=== PATIENT | female | born 1950 | race Caucasian/White ===

== ENCOUNTER → 2016-08-21 | Outpatient (CLI) | payer MEDICARE, OTHER ==
--- NOTE | 2016-08-23 08:26 | XR ---
Right elbow HISTORY: Pain, bursitis 3 views of the right elbow Bone mineralization, joint spaces and alignment are maintained. No fracture or dislocation. Soft tiss ue swelling noted posteriorly. There may be a joint effusion. IMPRESSION: Findings may be indicative of bursitis, possible joint effusion.
== END ==
LOC: RADXRYALE 14:50
PROVIDERS: ATTEND Internal Medicine
DX: M70.21 Olecranon bursitis, right elbow (principal)

== ENCOUNTER → 2018-12-31 | Outpatient (CLI) | payer MEDICARE, OTHER ==
--- NOTE | 2018-12-31 21:15 | XR ---
EXAMINATION TYPE: XR ribs LT w pa chest xray DATE OF EXAM: 12/31/2018 CLINICAL HISTORY: Chest and left-sided rib pain after falling injury 4 days ago. TECHNIQUE: Single frontal view of the chest is obtained. A frontal and oblique images of the left-azucena ed ribs are acquired. COMPARISON: Chest x-ray August 16, 2013. FINDINGS: There are some chronic parenchymal change with right midlung linear scarring redemonstrated . There is no new suspicious focal air space opacity, pleural effusion, or pneumothorax seen. The ca rdiac silhouette size is stable and within normal limits. Surgical changes lumbar spine is present. T here is stimulator device mid to lower thoracic spinal canal noted. Cholecystectomy clips are appreci ated. Dedicated images of left-sided ribs show no acute displaced fracture. Overlying soft tissue is unrema rkable. IMPRESSION: 1. Chronic changes without acute pulmonary process. Tube. No acute displaced left-sided rib fractures are seen
== END ==
LOC: RADXRYALE 16:00
PROVIDERS: ATTEND Internal Medicine
DX: R07.81 Pleurodynia (principal)

== ENCOUNTER → 2019-01-22 | Outpatient (CLI) | payer MEDICARE, OTHER ==
--- NOTE | 2019-01-25 11:42 | MM ---
Reason for exam: screening (asymptomatic). Last mammogram was performed 1 year and 3 months ago. History: Patient is postmenopausal and has history of other cancer at age 65. Family history of breast cancer in mother at age 30. Physical Findings: A clinical breast exam by your physician is recommended on an annual basis and results should be correlated with mammographic findings. MG 3D Screening Mammo W/Cad Bilateral CC and MLO view(s) were taken. Prior study comparison: October 08, 2017, mammogram, performed at [facility]. September 12, 2015, mammogram, performed at [facility]. There are scattered fibroglandular densities. Stable benign calcifications. There is no discrete abnormality. No significant changes when compared with prior studies. ASSESSMENT: Benign, BI-RAD 2 RECOMMENDATION: Routine screening mammogram of both breasts in 1 year.
== END | disposition home or self-care (01) ==
LOC: RADMAMWWP 15:05
PROVIDERS: ATTEND Internal Medicine
DX: Z12.31 Encounter for screening mammogram for malignant neoplasm of breast (principal)
CPT/HCPCS: 77063; 77067

== ENCOUNTER → 2019-08-06 | Outpatient (CLI) | payer MEDICARE, OTHER ==
--- NOTE | 2019-08-06 15:40 | XR ---
EXAMINATION TYPE: XR foot complete LT DATE OF EXAM: 08/06/2019 COMPARISON: None HISTORY: Bilateral foot pain TECHNIQUE: Three-view left foot FINDINGS: Plantar calcaneal heel spurs are present. Joint spaces are preserved. No acute displaced fracture or dislocation. The may be an old fracture of the mid diaphysis proximal phalanx fifth digit. There is a very subtle lucency within the base of the fifth metatarsal. Cortex disruption is not rosalee rly identified. This is nondisplaced. Very subtle nondisplaced fracture is not entirely excluded. Cor relate with location of patient's pain. Follow-up exam in 7-10 days could be performed to reevaluate this area for possible fracture. IMPRESSION: 1. Very subtle or nearly occult fracture of the base of the fifth metatarsal may be present. Conside r follow-up examination for confirmation. Artifact remains within the differential. 2. No additional areas suspicious for fracture are evident.
== END | disposition home or self-care (01) ==
LOC: RADXRYALE 15:13
PROVIDERS: ATTEND Internal Medicine
DX: S93.602A Unspecified sprain of left foot, initial encounter (principal)

== ENCOUNTER 2020-07-25 11:57 | Emergency (ER) | payer MEDICARE, OTHER ==
[2020-07-25 12:16] VITALS: BP 192/83; PULSE 82; RESP 20; TEMP 98
[2020-07-25] MEDS ORDERED: KETOROLAC 15 MG/ML 1 ML VIAL IM STA (12:43)
--- NOTE | 2020-07-25 13:36 | ED ---
General Adult HPI - General Chief complaint: Extremity Problem,Nontraumatic Stated complaint: left side pain Time Seen by Provider: 07/25/20 12:20 Source: patient, RN notes reviewed Mode of arrival: ambulatory Limitations: no limitations - History of Present Illness Initial comments: 69-year-old female with a past medical history of hyperlipidemia, hypertension, diabetes mellitus presents to the emergency room for chief complaint of left leg pain. Patient has had left leg pain for over a month now. States it is on the anterior thigh. Patient states it hurts to move. States she has been able to walk on this. She reports she had a sabrina placed in the left leg 4 years ago broken hip. She states it was a Dr. Bishop out of [facility] that performed the surgery however she has not followed up. Patient reports she has an appointment with her primary care doctor tomorrow for this pain.Patient has no other complaints at this time including shortness of breath, chest pain, abdominal pain, nausea or vomiting, headache, or visual changes. - Related Data Allergies Allergy/AdvReac Type Severity Reaction Status Date / Time acetaminophen Allergy Vomiting Verified 07/25/20 12:16 [From Darvocet-N] codeine Allergy Vomiting Verified 07/25/20 12:16 Penicillins Allergy Vomiting Verified 07/25/20 12:16 propoxyphene Allergy Vomiting Verified 07/25/20 12:16 [From Darvocet-N] Review of Systems ROS Statement: Those systems with pertinent positive or pertinent negative responses have been documented in the HPI. ROS Other: All systems not noted in ROS Statement are negative. Past Medical History Past Medical History: Diabetes Mellitus, Hyperlipidemia, Hypertension History of Any Multi-Drug Resistant Organisms: None Reported Past Surgical History: Back Surgery, Orthopedic Surgery Past Psychological History: No Psychological Hx Reported Smoking Status: Former smoker Past Alcohol Use History: None Reported Past Drug Use History: None Reported General Exam Limitations: no limitations General appearance: alert, in no apparent distress Head exam: Present: atraumatic, normocephalic, normal inspection Eye exam: Present: normal appearance, PERRL, EOMI. Absent: scleral icterus, conjunctival injection, periorbital swelling ENT exam: Present: normal exam, mucous membranes moist Neck exam: Present: normal inspection. Absent: tenderness, meningismus, lymphadenopathy Respiratory exam: Present: normal lung sounds bilaterally. Absent: respiratory distress, wheezes, rales, rhonchi, stridor Cardiovascular Exam: Present: regular rate, normal rhythm, normal heart sounds. Absent: systolic murmur, diastolic murmur, rubs, gallop, clicks Extremities exam: Present: tenderness (Minimal tenderness anterior mid thigh. No inner thigh tenderness. No erythema or edema.), normal capillary refill (Capillary refill less than 2 seconds the left lower extremity.), other (Sensation intact left lower extremity.). Absent: full ROM (Patient has about 90 flexion of the knee and hip, extension to neutral position.), calf tenderness Course Vital Signs 07/25/20 12:13 Temperature 98 F Pulse Rate 82 Respiratory 20 Rate Blood Pressure 192/83 O2 Sat by Pulse 96 Oximetry Medical Decision Making - Medical Decision Making 69-year-old female presents for femur pain for one month. Repair with medullary sabrina was completed over 4 years ago she reports. HPI and physical exam as documented. X-ray of the left hip shows no fracture. The posterior aspect of the fracture line may be incompletely healed at this time. [facility], recommends protected weightbearing and outpatient follow-up with them. I will give her referral. She will also follow up with primary care tomorrow. She has an appointment scheduled. She will return here for any worsening symptoms. Disposition Clinical Impression: Leg pain, left Disposition: HOME SELF-CARE Condition: Good Instructions (If sedation given, give patient instructions): Leg Pain (ED) Additional Instructions: Please take Motrin and Tylenol for pain. Please follow-up with primary care tomorrow. Follow-up with orthopedics for possible nonhealing fracture. Return to the emergency room for any worsening symptoms. Is patient prescribed a controlled substance at d/c from ED?: No Referrals: Tabatha Alonso MD [Primary Care Provider] - 1-2 days Tano Palacios MD [STAFF PHYSICIAN] - 1-2 days Time of Disposition: 14:37
--- NOTE | 2020-07-25 14:04 | XR ---
EXAMINATION TYPE: XR Hip LT and AP Pelvis DATE OF EXAM: 07/25/2020 COMPARISON: None HISTORY: Pain TECHNIQUE: AP pelvis and two-view left hip FINDINGS: Left hip pain and medullary sabrina are present. Femoral head articulates with the acetabulum. No acute fractures are evident. There may be some incomplete healing of the posterior aspect of the l eft femoral fracture on the frog leg view. The more anterior portion appears healed. Sacroiliac joint s have degenerative change. Symphysis pubis are normal. IMPRESSION: 1. No acute fractures of the left hip. The posterior aspect of the fracture line may be incompletely healed at this time.
--- NOTE | 2020-07-25 14:06 | XR ---
EXAMINATION TYPE: XR femur LT DATE OF EXAM: 07/25/2020 COMPARISON: 2 view left femur HISTORY: Fracture, repair TECHNIQUE: 2 view left femur FINDINGS: Degenerative changes are at the knee joint space. There is a left hip pin with medullary ro d. An acute fractures are identified. Some incomplete healing of the posterior aspect of the femoral fracture may be present on the lateral view. Note is made of vascular calcification. IMPRESSION: 1. There may be incomplete healing of the posterior proximal left femoral fracture line. No acute fr actures are evident.
== END 2020-07-25 14:55 | disposition home or self-care (01) ==
LOC: EC 11:57
DX: M79.605 Pain in left leg (principal); E11.9 Type 2 diabetes mellitus without complications; E78.5 Hyperlipidemia, unspecified; I10 Essential (primary) hypertension; Z87.891 Personal history of nicotine dependence
CPT/HCPCS: 73502; 73552; 99283; 96372; J1885

== ENCOUNTER → 2020-08-11 | Outpatient (CLI) | payer MEDICARE, OTHER ==
--- NOTE | 2020-08-11 07:53 | CT ---
EXAMINATION TYPE: CT hip LT wo con DATE OF EXAM: 08/11/2020 COMPARISON: None HISTORY: left hip pain, reduced range of motion CT DLP: 763.7 mGycm Automated exposure control for dose reduction was used. Unenhanced CT of the left hip was performed w ith bone and soft tissue window settings submitted. Axial coronal and sagittal views are reviewed at the workstation. 3-D reconstruction is obtained at a separate workstation. FINDINGS: There is dynamic compression screw and intramedullary jah about the proximal left femur. Hardware chidi ears to be well seated. The mid and lateral portions of the fracture line continue to be visible comp atible with partial nonunion. No additional fractures are seen. Mild degenerative joint space narrowi ng. No soft tissue collections evident. IMPRESSION: POSTSURGICAL CHANGES OF INTRAMEDULLARY JAH AND DYNAMIC COMPRESSION SCREW AND PROXIMAL LEFT FEMUR. 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
== END ==
LOC: RADCTMAIN 07:04
PROVIDERS: ATTEND Orthopaedic Surgery
DX: M25.552 Pain in left hip (principal); E11.9 Type 2 diabetes mellitus without complications; E78.5 Hyperlipidemia, unspecified; S72.22XK Displaced subtrochanteric fracture of left femur, subsequent encounter for closed fracture with nonunion; X58.XXXA Exposure to other specified factors, initial encounter

== ENCOUNTER 2020-10-07 22:28 | Inpatient (IN) | payer MEDICARE, OTHER ==
[2020-10-07] MEDS ORDERED: SODIUM CHLORIDE 0.9% 1,000 ML IV STA (22:53)
[2020-10-07] MEDS ORDERED: ONDANSETRON 4 MG/2 ML VIAL IVP STA (22:53)
[2020-10-07] MEDS ORDERED: PANTOPRAZOLE 40 MG/10 ML VIAL IVP STA (22:54)
[2020-10-07 23:34] LABS: Anisocytosis Slight; Basophils # (A) 0.1 k/uL (0-0.2); Basophils % (A) 1 %; Eosinophils # (A) 0.1 k/uL (0-0.7); Eosinophils % (A) 2 %; HGB 13.1 gm/dL (11.4-16.0); Lymphocytes # (A) 1.3 k/uL (1.0-4.8); Lymphocytes % (A) 18 %; MCH 26.3 pg (25.0-35.0); MCHC 31.3 g/dL (31.0-37.0); MCV 84.1 fL (80.0-100.0); Mean Platelet Volume 9.2; Monocytes # (A) 0.5 k/uL (0-1.0); Monocytes % (A) 8 %; Neutrophils % (A) 70 %; Platelet Count 244 k/uL (150-450); RBC 4.99 m/uL (3.80-5.40); RDW 16.5 % (11.5-15.5); WBC 7.1 k/uL (3.8-10.6)
--- NOTE | 2020-10-07 23:42 | ED ---
Nausea/Vomiting/Diarrhea HPI - General Chief complaint: Nausea/Vomiting/Diarrhea Stated complaint: Diarrhea Time Seen by Provider: 10/07/20 22:37 Source: patient Mode of arrival: wheelchair - History of Present Illness Initial comments: 70-year-old female presents to the emergency department with a chief complaint of diarrhea. Patient has history of colitis and states she gets occasional bouts of diarrhea but this time has been persistent for the past week. States everything is going through her even though she is drinking plenty of fluids and eating quite a bit of fluid. She reports profuse watery diarrhea with no signs of bleeding. States last time she had symptoms similar she was diagnosed with C. diff. States she sent a sample to 's office but has not heard any results. Denies any recent antibiotics but states she was recently on steroids for the colitis flare. Denies any fevers or chills chest pain shortness of breath. Reports some mild, diffuse abdominal pain. Denies any nausea or vomiting. - Related Data Home Medications Medication Instructions Recorded Confirmed Albuterol Sulfate [Ventolin HFA] 2 puff INHALATION RT-QID PRN 07/25/20 07/25/20 Allopurinol [Zyloprim] 100 mg PO DAILY 07/25/20 07/25/20 Cholecalciferol [Vitamin D3 (25 25 mcg PO DAILY 07/25/20 07/25/20 Mcg = 1000 Iu)] Cholestyramine (with Sugar) 4 gm PO DAILY 07/25/20 07/25/20 [Cholestyramine Packet] Diphenox-Atrop 2.5-0.025 mg 2 tab PO BID 07/25/20 07/25/20 [Lomotil] Escitalopram [Lexapro] 20 mg PO DAILY 07/25/20 07/25/20 Fluticasone/Salmeterol [Advair 1 puff INHALATION RT-BID 07/25/20 07/25/20 250-50 Diskus] Gabapentin 600 mg PO BID 07/25/20 07/25/20 Linagliptin [Tradjenta] 5 mg PO DAILY 07/25/20 07/25/20 Losartan Potassium 50 mg PO DAILY 07/25/20 07/25/20 Omeprazole 20 mg PO DAILY 07/25/20 07/25/20 Pravastatin Sodium [Pravachol] 40 mg PO DAILY 07/25/20 07/25/20 guaiFENesin [Mucinex] 1,200 mg PO BID PRN 07/25/20 07/25/20 Allergies Allergy/AdvReac Type Severity Reaction Status Date / Time bee venom protein (honey bee) Allergy Anaphylaxis Verified 10/07/20 22:36 bupropion AdvReac Unknown Verified 10/07/20 22:36 [From Wellbutrin SR] codeine AdvReac Vomiting Verified 10/07/20 22:34 furosemide [From Lasix] AdvReac Unknown Verified 10/07/20 22:36 ibuprofen [From Motrin] AdvReac Unknown Verified 10/07/20 22:36 loracarbef [From Lorabid] AdvReac Unknown Verified 10/07/20 22:36 morphine AdvReac Nausea & Verified 10/07/20 22:36 Vomiting Penicillins AdvReac Vomiting Verified 10/07/20 22:34 propoxyphene AdvReac Vomiting Verified 10/07/20 22:34 [From Darvocet-N] biqxin AdvReac Abdominal Uncoded 10/07/20 22:36 Pain lodine AdvReac Unknown Uncoded 10/07/20 22:36 toziaz AdvReac Unknown Uncoded 10/07/20 22:36 Review of Systems ROS Statement: Those systems with pertinent positive or pertinent negative responses have been documented in the HPI. ROS Other: All systems not noted in ROS Statement are negative. Past Medical History Past Medical History: Diabetes Mellitus, Hyperlipidemia, Hypertension Additional Past Medical History / Comment(s): colitis History of Any Multi-Drug Resistant Organisms: None Reported Past Surgical History: Back Surgery, Orthopedic Surgery Additional Past Surgical History / Comment(s): having surgery left femur september 2020 Past Psychological History: No Psychological Hx Reported Smoking Status: Former smoker Past Alcohol Use History: None Reported Past Drug Use History: None Reported General Exam Limitations: no limitations General appearance: alert, in no apparent distress Head exam: Present: atraumatic, normocephalic, normal inspection Eye exam: Present: normal appearance, PERRL, EOMI Pupils: Present: normal accommodation ENT exam: Present: normal exam, normal oropharynx, mucous membranes moist Neck exam: Present: normal inspection, full ROM. Absent: tenderness Respiratory exam: Present: normal lung sounds bilaterally. Absent: respiratory distress Cardiovascular Exam: Present: regular rate, normal rhythm, normal heart sounds. Absent: systolic murmur, diastolic murmur GI/Abdominal exam: Present: soft, tenderness (Mild, diffuse abdominal tenderness). Absent: distended, guarding, rebound, rigid Extremities exam: Present: normal inspection, full ROM, normal capillary refill. Absent: tenderness, pedal edema, joint swelling Back exam: Present: normal inspection, full ROM. Absent: tenderness, CVA tenderness (R), CVA tenderness (L) Neurological exam: Present: alert, oriented X3 Psychiatric exam: Present: normal affect, normal mood Skin exam: Present: warm, dry, intact, normal color Course Vital Signs 10/07/20 22:31 Temperature 98.5 F Pulse Rate 58 L Respiratory 18 Rate Blood Pressure 149/73 O2 Sat by Pulse 98 Oximetry Medical Decision Making - Medical Decision Making 70-year-old female presents to the emergency department with a chief complaint of diarrhea. On physical examination, patient appears to be weak. Mild dry mucous membranes. Diffuse abdominal tenderness, mostly to the left lower quadrant. CT of abdomen and pelvis shows no acute inflammatory changes. CBC CMP remarkable. Mild hypokalemia with a potassium of 3.2. Patient was given oral potassium. UA shows urinary tract infection with elevated leukocyte esterase and white blood cells. Will be started on Rocephin. Patient will be admitted for observation. I discussed the case with . Consult for Dr Duque, she is the patient GI physician. - Lab Data Result diagrams: 10/07/20 22:53 10/07/20 22:53 Lab Results 10/07/20 10/07/20 10/07/20 Range/Units 22:53 22:53 22:53 WBC 7.1 (3.8-10.6) k/uL RBC 4.99 (3.80-5.40) m/uL Hgb 13.1 (11.4-16.0) gm/dL Hct 42.0 (34.0-46.0) % MCV 84.1 (80.0-100.0) fL MCH 26.3 (25.0-35.0) pg MCHC 31.3 (31.0-37.0) g/dL RDW 16.5 H (11.5-15.5) % Plt Count 244 (150-450) k/uL MPV 9.2 Neutrophils % 70 % Lymphocytes % 18 % Monocytes % 8 % Eosinophils % 2 % Basophils % 1 % Neutrophils # 5.0 (1.3-7.7) k/uL Lymphocytes # 1.3 (1.0-4.8) k/uL Monocytes # 0.5 (0-1.0) k/uL Eosinophils # 0.1 (0-0.7) k/uL Basophils # 0.1 (0-0.2) k/uL Anisocytosis Slight Sodium 141 (137-145) mmol/L Potassium 3.2 L (3.5-5.1) mmol/L Chloride 104 (98-107) mmol/L Carbon Dioxide 27 (22-30) mmol/L Anion Gap 10 mmol/L BUN 30 H (7-17) mg/dL Creatinine 0.88 (0.52-1.04) mg/dL Est GFR (CKD-EPI)AfAm 78 (>60 ml/min/1.73 sqM) Est GFR (CKD-EPI)NonAf 68 (>60 ml/min/1.73 sqM) Glucose 114 H (74-99) mg/dL Calcium 8.8 (8.4-10.2) mg/dL Total Bilirubin 0.3 (0.2-1.3) mg/dL AST 25 (14-36) U/L ALT 16 (4-34) U/L Alkaline Phosphatase 60 (38-126) U/L Total Protein 6.9 (6.3-8.2) g/dL Albumin 3.8 (3.5-5.0) g/dL Amylase 50 (30-110) U/L Lipase 45 (23-300) U/L Urine Color Yellow Urine Appearance Cloudy H (Clear) Urine pH 6.0 (5.0-8.0) Ur Specific Brooten 1.018 (1.001-1.035) Urine Protein Trace H (Negative) Urine Glucose (UA) Negative (Negative) Urine Ketones Negative (Negative) Urine Blood Negative (Negative) Urine Nitrite Negative (Negative) Urine Bilirubin Negative (Negative) Urine Urobilinogen <2.0 (<2.0) mg/dL Ur Leukocyte Esterase Large H (Negative) Urine RBC 1 (0-5) /hpf Urine WBC 152 H (0-5) /hpf Urine WBC Clumps Occasional H (None) /hpf Urine Bacteria Occasional H (None) /hpf Urine Mucus Few H (None) /hpf C. difficile (EIA) Intrp (Negative) 10/08/20 Range/Units 00:11 WBC (3.8-10.6) k/uL RBC (3.80-5.40) m/uL Hgb (11.4-16.0) gm/dL Hct (34.0-46.0) % MCV (80.0-100.0) fL MCH (25.0-35.0) pg MCHC (31.0-37.0) g/dL RDW (11.5-15.5) % Plt Count (150-450) k/uL MPV Neutrophils % % Lymphocytes % % Monocytes % % Eosinophils % % Basophils % % Neutrophils # (1.3-7.7) k/uL Lymphocytes # (1.0-4.8) k/uL Monocytes # (0-1.0) k/uL Eosinophils # (0-0.7) k/uL Basophils # (0-0.2) k/uL Anisocytosis Sodium (137-145) mmol/L Potassium (3.5-5.1) mmol/L Chloride (98-107) mmol/L Carbon Dioxide (22-30) mmol/L Anion Gap mmol/L BUN (7-17) mg/dL Creatinine (0.52-1.04) mg/dL Est GFR (CKD-EPI)AfAm (>60 ml/min/1.73 sqM) Est GFR (CKD-EPI)NonAf (>60 ml/min/1.73 sqM) Glucose (74-99) mg/dL Calcium (8.4-10.2) mg/dL Total Bilirubin (0.2-1.3) mg/dL AST (14-36) U/L ALT (4-34) U/L Alkaline Phosphatase (38-126) U/L Total Protein (6.3-8.2) g/dL Albumin (3.5-5.0) g/dL Amylase (30-110) U/L Lipase (23-300) U/L Urine Color Urine Appearance (Clear) Urine pH (5.0-8.0) Ur Specific Brooten (1.001-1.035) Urine Protein (Negative) Urine Glucose (UA) (Negative) Urine Ketones (Negative) Urine Blood (Negative) Urine Nitrite (Negative) Urine Bilirubin (Negative) Urine Urobilinogen (<2.0) mg/dL Ur Leukocyte Esterase (Negative) Urine RBC (0-5) /hpf Urine WBC (0-5) /hpf Urine WBC Clumps (None) /hpf Urine Bacteria (None) /hpf Urine Mucus (None) /hpf C. difficile (EIA) Intrp Negative (Negative) Disposition Clinical Impression: Diarrhea, Hypokalemia, Urinary tract infection Disposition: ADMITTED IP TO THIS HOSP Condition: Stable Is patient prescribed a controlled substance at d/c from ED?: No Referrals: Tabatha Alonso MD [Primary Care Provider] - 1-2 days Time of Disposition: 02:13
[2020-10-07 23:47] LABS: Albumin 3.8 g/dL (3.5-5.0); Calcium 8.8 mg/dL (8.4-10.2); Potassium 3.2 mmol/L (3.5-5.1); Total Bilirubin 0.3 mg/dL (0.2-1.3); Total Protein 6.9 g/dL (6.3-8.2)
[2020-10-07] MEDS ORDERED: POTASSIUM CHLORIDE ER 20 MEQ TAB.ER PO STA (23:54)
[2020-10-08] MEDS ORDERED: methylPREDNISolone SOD SUCCI 125 MG/2 ML VIAL IV STA (00:10)
[2020-10-08] MEDS ORDERED: diphenhydrAMINE 50 MG/ML 1 ML VIAL IVP STA (00:10)
[2020-10-08] MEDS ORDERED: FAMOTIDINE 20 MG/2 ML VIAL IV STA (00:11)
[2020-10-08 00:35] LABS: Appearance,Urine Cloudy (Clear); Bacteria,Urine Occasional /hpf; Bilirubin,Urine Negative (Negative); Blood,Urine Negative (Negative); Color,Urine Yellow; Glucose,Urine (UA) Negative (Negative); Ketones,Urine Negative (Negative); Leukocyte Esterase,Urine Large (Negative); Mucus,Urine Few /hpf; Nitrite,Urine Negative (Negative); Protein,Urine Trace (Negative); RBC,Urine 1 /hpf (0-5); Specific Gravity,Urine 1.018 (1.001-1.035); Urobilinogen,Urine <2.0 mg/dL (<2.0); WBC,Urine 152 /hpf (0-5)
--- NOTE | 2020-10-08 01:12 | CT ---
EXAMINATION TYPE: CT abdomen pelvis w con DATE OF EXAM: 10/08/2020 COMPARISON: None HISTORY: llq pain CT DLP: 1294.3 mGycm Automated exposure control for dose reduction was used. CONTRAST: Performed with IV Contrast, patient injected with 100 mL of Isovue 300. Images obtained from the diaphragm to the floor the pelvis with IV contrast. Lung bases show minimal subsegmental atelectasis on the right side. Heart size is fairly normal. Ther e is no pericardial effusion. There is small hiatal hernia. There are clips from cholecystectomy. Liver spleen stomach pancreas appear intact. The bile ducts are not dilated. There is no adrenal mass. Kidneys show satisfactory contrast opacification. There is no hydronephrosi s. The ureters are not dilated. There is no retroperitoneal adenopathy. Bladder distends smoothly. Th ere is no inguinal hernia. There is no free fluid in the pelvis. There is no mesenteric edema. There is no ascites or free air. There is no sign of a bowel obstructio n. Urinary bladder wall is somewhat thickened. There is thoracolumbar dextroscoliosis and multilevel fusion surgery in the lumbar spine. There is mu ltilevel lumbar spondylotic changes. There is left hip nailing. Bony pelvis is intact. The sacroiliac joints are intact. There is no sign of thickened appendix. IMPRESSION: I do not see evidence of inflammatory bowel disease. There are some sigmoid diverticula without diver ticulitis. Mild urinary bladder wall thickening suggestive of some nonspecific cystitis.
[2020-10-08] MEDS ORDERED: ONDANSETRON 4 MG/2 ML VIAL IVP PRN (02:08)
[2020-10-08] MEDS ORDERED: NALOXONE 0.4 MG/ML 1 ML VIAL IV PRN (02:08)
[2020-10-08] MEDS ORDERED: SODIUM CHLORIDE 0.9% 1,000 ML IV SCH (02:15)
--- NOTE | 2020-10-08 08:45 | CONS ---
CONSULTATION DATE OF DICTATION: October 08, 2020. REASON FOR CONSULTATION: Diarrhea for the last several weeks' duration. HISTORY OF PRESENT ILLNESS: The patient is a 70-year-old pleasant white male known to me from previous office visits, who was recently seen in the office about 3 weeks ago complaining of severe diarrhea for the last 3-4 weeks. She has been having bowel movements anywhere from 6-8 a day which are loose to watery in consistency with no blood or mucus in the stool. She was diagnosed with C difficile colitis in March of this year and was treated with antibiotics and doing well. Recently in the office, she did have repeat C difficile toxin was reported as negative. 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 She was given a trial of Entocort 9 mg daily about 3 weeks ago and was advised to taper it by 3 mg every month. However, after she started the medications she had symptomatic relief in the first 2 weeks, but now continues to have worsening diarrhea and hence came into the emergency room and subsequently admitted to the hospital for further evaluation. The patient denies any rectal bleeding. She reports she does have some abdominal bloating and cramping, lower abdominal pain. No nausea, no vomiting. Weight loss of about 10 or 15 pounds. She denies any recent travel history. No recent antibiotic use. She was also started on Lomotil and Questran on an outpatient basis with no help. PAST MEDICAL HISTORY: Significant for hypertension, diabetes mellitus, hyperlipidemia. PAST SURGICAL HISTORY: Back surgery, left femur surgery, colonoscopy 2014. MEDICATIONS: Medications at home include Lomotil, Questran, Ventolin, Zyloprim, vitamin D3, Lexapro, Advair, gabapentin, Tradjenta, Mucinex, Pravachol, omeprazole, losartan, and Entocort. ALLERGIES: TO HONEY BEE, CODEINE, LASIX, MOTRIN, LORBID, MORPHINE, PENICILLIN, DARVOCET, BIAXIN, IODINE AND . SOCIAL HISTORY: No smoking. No alcohol use. FAMILY HISTORY: Unremarkable. REVIEW OF SYSTEMS: CARDIOPULMONARY: She denies any chest pain or shortness of breath. : No dysuria. No hematuria. MUSCULOSKELETAL: Unremarkable. SKIN unremarkable. ENDOCRINE unremarkable. PSYCHIATRIC: Mild depression. ENT/VISION: Unremarkable. CONSTITUTIONAL: Weight loss of 10 pounds. No fever, chills, night sweats. ENDOCRINE: Longstanding history of diabetes mellitus. PHYSICAL EXAMINATION: She appears comfortable. VITAL SIGNS: Stable. Blood pressure is 174/64, pulse rate 65, temperature 97.8. HEENT examination unremarkable. Conjunctivae pink. Sclerae anicteric. Oral cavity no lesions. NECK: No JVD or lymph node enlargement. CHEST was clear to auscultation. HEART: Regular rate and rhythm. ABDOMEN: Soft. Bowel sounds are positive. No organomegaly. EXTREMITIES: No pedal edema. SKIN: No rashes. NEUROLOGIC: Alert and oriented x3. No focal deficits. LABS: WBC 7.1, hemoglobin 13, platelets normal. Basic metabolic panel is within normal limits. BUN is 30, creatinine 0.88. C diff is negative. IMPRESSION: 1. Chronic diarrhea for the last 3-4 weeks duration. Patient having bowel movements anywhere from 6-8 a day which are loose to watery in consistency with no blood or mucus in the stool. Her last colonoscopy in [address] Scales showed evidence of microscopic colitis and patient is being treated empirically with Entocort 9 mg daily on an outpatient basis that was started about 3 weeks ago. Patient has no symptomatic improvement and hence stopped the medication. She was also on Lomotil and Questran with no help. 2. History of C difficile colitis in March of this year. Repeat C difficile toxin negative 3 weeks ago and today. 3. History of diabetes mellitus. 4. History of hypertension and hyperlipidemia. RECOMMENDATIONS: 1. Start on clear liquid diet. 2. We will proceed with EGD colonoscopy tomorrow. I discussed with the patient benefits and complications and she is agreeable to it. In the meantime, we will await rest of the stool cultures and we will follow with you closely. MMODL / IJN: [id number] /
[2020-10-08] MEDS ORDERED: POTASSIUM CHLORIDE ER 20 MEQ TAB.ER PO STA (11:00)
[2020-10-08] MEDS ORDERED: ALBUTEROL NEBULIZED 2.5 MG/3 ML INHALATION PRN (11:01)
[2020-10-08] MEDS: GABAPENTIN 300 MG CAP PO SCH ×2 (11:27→20:38)
[2020-10-08] MEDS: LOSARTAN 50 MG TAB PO SCH (11:28)
[2020-10-08] MEDS: ESCITALOPRAM 20 MG TAB PO SCH (11:28)
--- NOTE | 2020-10-08 11:44 | P.HPIM ---
History of Present Illness 70-year-old female came in with compensative diarrhea patient has chronic diarrhea for about a month. Patient usually has a 3-4 episodes of diarrhea lately for LAD last for 5 days patient was having a bout of 5 nonbloody diarrhea without any mucus. Patient was on steroids in the for microscopic colitis. C. diff was done which was negative. Patient is on antidiarrheal medications. Patient denied any fever chills patient and dysuria. Patient was a valid by gastroenterology patient will undergo colonoscopy tomorrow patient denied any significant abdominal pain apparently she had some abdominal pain is resolved at this time. Patient is hyponatremic secondary to diarrhea potassium will be replaced patient received 40 mg her potassium yesterday was 3.2 we will give her 60 more. Patient is expected to have low potassium as she continued to have diarrhea and she is receiving IV fluids and patient will receive GoLYTELY today for colonoscopy. REVIEW OF SYSTEMS: CONSTITUTIONAL: No fever, no malaise, no fatigue. HEENT: No recent visual problems or hearing problems. Denied any sore throat. CARDIOVASCULAR: No chest pain, orthopnea, PND, no palpitations, no syncope. PULMONARY: No shortness of breath, no cough, no hemoptysis. GASTROINTESTINAL: As mentioned in HPI. NEUROLOGICAL: No headaches, no weakness, no numbness. HEMATOLOGICAL: Denies any bleeding or petechiae. GENITOURINARY: Denies any burning micturition, frequency, or urgency. MUSCULOSKELETAL/RHEUMATOLOGICAL: Denies any joint pain, swelling, or any muscle pain. ENDOCRINE: Denies any polyuria or polydipsia. The rest of the 14-point review of systems is negative. PHYSICAL EXAMINATION: GENERAL: The patient is alert and oriented x3, not in any acute distress. Well developed, well nourished. HEENT: Pupils are round and equally reacting to light. EOMI. No scleral icterus. No conjunctival pallor. Normocephalic, atraumatic. No pharyngeal erythema. No thyromegaly. CARDIOVASCULAR: S1 and S2 present. No murmurs, rubs, or gallops. PULMONARY: Chest is clear to auscultation, no wheezing or crackles. ABDOMEN: Soft, nontender, nondistended, normoactive bowel sounds. No palpable organomegaly. MUSCULOSKELETAL: No joint swelling or deformity. EXTREMITIES: No cyanosis, clubbing, or pedal edema. NEUROLOGICAL: Gross neurological examination did not reveal any focal deficits. SKIN: No rashes. 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 -Depression DVT prophylaxis: Lovenox Past Medical History Past Medical History: Diabetes Mellitus, Hyperlipidemia, Hypertension Additional Past Medical History / Comment(s): colitis History of Any Multi-Drug Resistant Organisms: None Reported Past Surgical History: Back Surgery, Orthopedic Surgery Additional Past Surgical History / Comment(s): having surgery left femur september 2020 Additional Past Anesthesia/Blood Transfusion Reaction / Comment(s): States allergic to the sun from transfusion Past Psychological History: No Psychological Hx Reported Additional Psychological History / Comment(s): Sister at bedside states 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 Smoking Status: Former smoker Past Alcohol Use History: None Reported Past Drug Use History: None Reported - Past Family History Father Additional Family Medical History / Comment(s): Stroke Medications and Allergies Home Medications Medication Instructions Recorded Confirmed Type Albuterol Sulfate [Ventolin HFA] 2 puff INHALATION RT-QID PRN 07/25/20 10/08/20 History Allopurinol [Zyloprim] 100 mg PO DAILY 07/25/20 10/08/20 History Cholecalciferol [Vitamin D3 (25 25 mcg PO DAILY 07/25/20 10/08/20 History Mcg = 1000 Iu)] Diphenox-Atrop 2.5-0.025 mg 2 tab PO TID PRN 07/25/20 10/08/20 History [Lomotil] Escitalopram [Lexapro] 20 mg PO DAILY 07/25/20 10/08/20 History Fluticasone/Salmeterol [Advair 1 puff INHALATION RT-BID 07/25/20 10/08/20 History 250-50 Diskus] Gabapentin 600 mg PO BID 07/25/20 10/08/20 History Losartan Potassium 50 mg PO DAILY 07/25/20 10/08/20 History Omeprazole 20 mg PO DAILY 07/25/20 10/08/20 History Pravastatin Sodium [Pravachol] 40 mg PO DAILY 07/25/20 10/08/20 History guaiFENesin [Mucinex] 1,200 mg PO BID PRN 07/25/20 10/08/20 History Dicyclomine [Bentyl] 10 mg PO QID PRN 10/08/20 10/08/20 History Allergies Allergy/AdvReac Type Severity Reaction Status Date / Time bee venom protein (honey bee) Allergy Anaphylaxis Verified 10/08/20 09:45 bupropion AdvReac Unknown Verified 10/08/20 09:45 [From Wellbutrin SR] codeine AdvReac Vomiting Verified 10/08/20 09:45 furosemide [From Lasix] AdvReac Unknown Verified 10/08/20 09:45 ibuprofen [From Motrin] AdvReac Unknown Verified 10/08/20 09:45 loracarbef [From Lorabid] AdvReac Unknown Verified 10/08/20 09:45 morphine AdvReac Nausea & Verified 10/08/20 09:45 Vomiting Penicillins AdvReac Vomiting Verified 10/08/20 09:45 propoxyphene AdvReac Vomiting Verified 10/08/20 09:45 [From Darvocet-N] biqxin AdvReac Abdominal Uncoded 10/07/20 22:36 Pain lodine AdvReac Unknown Uncoded 10/07/20 22:36 toziaz AdvReac Unknown Uncoded 10/07/20 22:36 Physical Exam Vitals: Vital Signs Temp Pulse Pulse Resp BP BP BP 10/08/20 10:24 58 L 18 158/83 10/08/20 08:00 97.8 F 65 16 174/64 10/08/20 04:02 59 L 10/08/20 01:51 98.5 F 58 L 16 149/74 10/08/20 01:33 71 16 148/84 10/07/20 22:31 98.5 F 58 L 18 149/73 Pulse Ox 10/08/20 10:24 95 10/08/20 08:00 94 L 10/08/20 04:02 10/08/20 01:51 10/08/20 01:33 100 10/07/20 22:31 98 Intake and Output 10/07/20 10/08/20 10/08/20 22:59 06:59 14:59 Output Total 200 Balance -200 Output: Urine 200 Other: Voiding Method Toilet Diaper # Voids 1 1 # Bowel Movements 1 Weight 61.235 kg 75.2 kg Results CBC & Chem 7: 10/07/20 22:53 10/07/20 22:53 Labs: Abnormal Lab Results - Last 24 Hours (Table) 10/07/20 10/07/20 10/07/20 Range/Units 22:53 22:53 22:53 RDW 16.5 H (11.5-15.5) % Potassium 3.2 L (3.5-5.1) mmol/L BUN 30 H (7-17) mg/dL Glucose 114 H (74-99) mg/dL Urine Appearance Cloudy H (Clear) Urine Protein Trace H (Negative) Ur Leukocyte Esterase Large H (Negative) Urine WBC 152 H (0-5) /hpf Urine WBC Clumps Occasional H (None) /hpf Urine Bacteria Occasional H (None) /hpf Urine Mucus Few H (None) /hpf Microbiology - Last 24 Hours (Table) 10/07/20 22:53 Urine Culture - Preliminary Urine,Voided Thrombosis Risk Factor Assmnt - Choose All That Apply Each Factor Represents 1 point: Hx of IBD, Minor surgery planned, Obesity (BMI >25) Each Risk Factor Represents 2 Points: Age 61-74 years Thrombosis Risk Factor Assessment Total Risk Factor Score: 5 Thrombosis Risk Factor Assessment Level: High Risk
[2020-10-08] MEDS: 0.9% NACL WITH KCL 20 MEQ/L 1,000 ML IV SCH ×2 (12:32→21:41)
[2020-10-08 12:41] LABS: Glucose,Whole Blood 139 mg/dL (75-99)
[2020-10-08] MEDS: INSULIN ASPART (NovoLOG) 100 UNIT/ML VIAL SQ SCH ×3 (12:45→20:38)
[2020-10-08] MEDS ORDERED: PEG 3350-NA SULF,BICARB,CL/KCL 4,000 ML BOTTLE PO ONE (17:00)
[2020-10-08 17:20] LABS: Glucose,Whole Blood 120 mg/dL (75-99)
[2020-10-08] MEDS: SYMBICORT 80-4.5 MCG INHALER INHALATION SCH (20:27)
[2020-10-08 20:32] LABS: Glucose,Whole Blood 126 mg/dL (75-99)
[2020-10-09 06:36] LABS: Glucose,Whole Blood 73 mg/dL (75-99)
[2020-10-09] MEDS: INSULIN ASPART (NovoLOG) 100 UNIT/ML VIAL SQ SCH ×4 (06:54→20:01)
[2020-10-09] MEDS: PANTOPRAZOLE 40 MG TABLET PO SCH (06:56)
[2020-10-09 07:11] LABS: African American GFR (CKD) >90 (>60 ml/min/1.73 sqM); Anion Gap 2 mmol/L; Blood Urea Nitrogen 16 mg/dL (7-17); Calcium 8.5 mg/dL (8.4-10.2); Carbon Dioxide 24 mmol/L (22-30); Chloride 117 mmol/L (98-107); Glucose 84 mg/dL (74-99); Non-African American GFR(CKD) >90 (>60 ml/min/1.73 sqM); Potassium 3.6 mmol/L (3.5-5.1); Sodium 143 mmol/L (137-145)
[2020-10-09] MEDS: SYMBICORT 80-4.5 MCG INHALER INHALATION SCH ×2 (07:41→19:07)
[2020-10-09] MEDS ORDERED: D5-0.9% NACL WITH KCL 20 MEQ/L 1,000 ML IV SCH (08:00)
[2020-10-09] MEDS: PRAVASTATIN SODIUM 40 MG TAB PO SCH (09:48)
[2020-10-09] MEDS: LOSARTAN 50 MG TAB PO SCH (09:48)
[2020-10-09] MEDS: ESCITALOPRAM 20 MG TAB PO SCH (09:48)
[2020-10-09] MEDS: GABAPENTIN 300 MG CAP PO SCH ×2 (09:48→20:01)
[2020-10-09] MEDS: CHOLECALCIFEROL 25 MCG (1000 IU) TABLET PO SCH (09:48)
[2020-10-09] MEDS: ENOXAPARIN 40 MG/0.4 ML SYRINGE SQ SCH (09:48)
[2020-10-09] MEDS: allopurinoL 100 MG TAB PO SCH (09:48)
[2020-10-09 12:29] LABS: Glucose,Whole Blood 97 mg/dL (75-99)
[2020-10-09 12:54] LABS: Hemoglobin A1C 5.5 % (4.0-6.0)
[2020-10-09] MEDS ORDERED: PROPOFOL 10 MG/ML 20 ML VIAL IV ONE (14:37)
[2020-10-09] MEDS ORDERED: SODIUM CHLORIDE 0.9% 500 ML 500 ML IV ONE ×2 (14:42)
--- NOTE | 2020-10-09 15:00 | P.PCN ---
Date of Procedure: 10/09/20 Procedure(s) Performed: Brief history: Patient is a pleasant 70-year-old white female admitted hospital with severe diarrhea for the last several weeks duration. She is been having bowel movements anywhere from 6-8 of which are loose to watery in consistency. Stool studies were negative She is scheduled for an upper endoscopy as well as colonoscopy as a part of evaluation of chronic diarrhea. Procedure performed: Esophagogastroduodenoscopy with biopsy Colonoscopy with biopsy Preoperative diagnosis: Abdominal pain/chronic diarrhea and weight loss Anesthesia: MAC Procedure: After informed consent was obtained from the patient was brought into the endoscopy unit and IV sedation was administered by anesthesia under continuous monitoring. Initially upper endoscopy was done. The Olympus GF 160 video endoscope was inserted inserted into the mouth and esophagus intubated without any difficulty and was gradually advanced into the stomach and duodenum and carefully examined. The bulb and second part of the duodenum appeared normal. Biopsies were done from the duodenum to rule out celiac disease The scope was then withdrawn into the stomach adequately insufflated with air and upon careful examination the antrum mild gastritis and biopsies were done from this area. The body, cardia and fundus appeared normal. The scope was then withdrawn into the esophagus. The GE junction was located at 40 cm to the incisors. It appeared regular with no erythema erosions or ulcerations. Rest of the esophagus appeared normal. Patient tolerated the procedure well. At this time the patient continued to remain sedation. Initial digital rectal examination was normal. Olympus CF 160 video colonoscope was then inserted into the rectum and gradually advanced to the cecum without any difficulty. Careful examination was performed as the scope was gradually being withdrawn. The prep was excellent. The cecum, ascending colon, transverse colon, descending colon, sigmoid colon and rectum appeared normal. Random biopsies were done from the ascending/descending colon to rule out microscopic/collagenous colitis Retroflexion was performed in the rectum and no lesions were noted. Patient tolerated the procedure well. Impression: 1. Upper endoscopy revealed mild antral gastritis 2. Colonoscopy revealed scattered sigmoid diverticulosis but no evidence of colitis or colorectal neoplasia Recommendations: Findings of this examination were discussed with the patient as well as her family. She was advised to follow with the biopsy result. In the meantime will start her on Lomotil 2 tablets 4 times daily.
[2020-10-09 17:21] LABS: Glucose,Whole Blood 67 mg/dL (75-99)
[2020-10-09] MEDS: DIPHENOX-ATROP 2.5-0.025 MG 1 EACH TAB PO SCH ×2 (18:07→21:31)
[2020-10-09] MEDS ORDERED: SODIUM CHLORIDE 0.9% 1,000 ML IV SCH (18:30)
[2020-10-09 20:01] LABS: Glucose,Whole Blood 116 mg/dL (75-99)
[2020-10-09] MEDS ORDERED: ACETAMINOPHEN TAB 325 MG TAB PO STA (21:14)
[2020-10-10 06:29] LABS: Glucose,Whole Blood 79 mg/dL (75-99)
[2020-10-10] MEDS: PANTOPRAZOLE 40 MG TABLET PO SCH (06:29)
[2020-10-10] MEDS: INSULIN ASPART (NovoLOG) 100 UNIT/ML VIAL SQ SCH (06:31)
[2020-10-10] MEDS: SYMBICORT 80-4.5 MCG INHALER INHALATION SCH (08:01)
[2020-10-10] MEDS: DIPHENOX-ATROP 2.5-0.025 MG 1 EACH TAB PO SCH (09:04)
[2020-10-10] MEDS: LOSARTAN 50 MG TAB PO SCH (09:04)
[2020-10-10] MEDS: ENOXAPARIN 40 MG/0.4 ML SYRINGE SQ SCH (09:04)
[2020-10-10] MEDS: CHOLECALCIFEROL 25 MCG (1000 IU) TABLET PO SCH (09:04)
[2020-10-10] MEDS: allopurinoL 100 MG TAB PO SCH (09:05)
[2020-10-10] MEDS: GABAPENTIN 300 MG CAP PO SCH (09:05)
[2020-10-10] MEDS: PRAVASTATIN SODIUM 40 MG TAB PO SCH (09:05)
[2020-10-10] MEDS: ESCITALOPRAM 20 MG TAB PO SCH (09:06)
[2020-10-10 09:11] VITALS: RESP 18
[2020-10-10 12:47] LABS: Glucose,Whole Blood 82 mg/dL (75-99)
[2020-10-10 14:23] VITALS: BP 143/63; PULSE 64; TEMP 97.7
--- NOTE | 2020-10-10 16:07 | P.PN ---
Subjective Progress Note Date: 10/10/20 Principal diagnosis: Diarrhea 70-year-old female who was admitted to the hospital with severe diarrhea for the last several weeks duration. She was having bowel movements anywhere from 6-8 which are loose and watery in consistency. Stool studies were negative. Yesterday she underwent an EGD and colonoscopy as part of her evaluation for chronic diarrhea. Upper endoscopy revealed mild antral gastritis and colonoscopy revealed scattered sigmoid diverticulosis but no evidence of colitis or colorectal neoplasia. Patient was started on Lomotil 2 tabs up he takes up to 4 times a day. Today she states she only had one episode of loose bowels, no blood noted. Denies any abdominal pain, nausea, or vomiting. Objective - Vital Signs Vital signs: Vital Signs Temp 98.5 F 10/10/20 00:49 Pulse 58 L 10/10/20 00:49 Resp 16 10/10/20 00:49 BP 158/60 10/10/20 00:49 Pulse Ox 94 L 10/10/20 00:49 Intake & Output 10/09/20 10/10/20 10/10/20 18:59 06:59 18:59 Intake Total 300 300 Balance 300 300 Intake: IV 300 Oral 300 Other: Voiding Method Toilet # Voids 2 1 # Bowel Movements 1 - Exam General appearance: The patient is alert, oriented, appears in no acute distress. HET: Head is normocephalic and atraumatic. Conjunctiva pink. Sclera anicteric. Neck: Supple without lymphadenopathy. Abdomen: Soft, nontender, nondistended with bowel sounds. No guarding or rigidity. Extremities: Normal skin color and turgor. No pedal edema Skin: No rashes, no jaundice Neurological: No focal deficits. Alert and oriented 3. - Labs CBC & Chem 7: 10/07/20 22:53 10/09/20 06:11 Labs: Abnormal Lab Results - Last 24 Hours (Table) 10/09/20 10/09/20 Range/Units 17:20 20:00 POC Glucose (mg/dL) 67 L 116 H (75-99) mg/dL Microbiology - Last 24 Hours (Table) 10/07/20 22:53 Urine Culture - Preliminary Urine,Voided Gram Neg Bacilli Assessment and Plan (1) Diarrhea Narrative/Plan: 70-year-old female with a history of chronic diarrhea for last 3-4 weeks duration. Patient was having bowel movements anywhere from 60 to date which she states were loose and watery in consistency with no blood or mucus in the stool. Has colonoscopy was in [address] Scales which showed evidence of microscopic colitis and patient is being treated empirically with Entocort 9 mg daily as an outpatient basis that was started 3 weeks ago. Patient has no symptomatic improvement and stopped the medication. She was also on Lomotil and Questran with no help. She also has a history of C. difficile colitis in March of this year. Repeat C. difficile toxin -3 weeks ago and today. The patient underwent EGD and colonoscopy yesterday showing mild antral gastritis and scattered sigmoid diverticulosis with no evidence of colitis or neoplasia. Status: Acute Code(s): R19.7 - DIARRHEA, UNSPECIFIED SNOMED Code(s): 47875239 Plan: 1. Continue symptomatic and supportive care 2. Regular diet 3. Continue Lomotil 2 tablets 4 times a day as needed 4. Patient to keep follow-up appointment as scheduled. Thank you for this consultation, patient is cleared for discharge. Dr. Shay Duque I agree with the dictator's note, documented as a scribe by Aurora Aguilera.
--- NOTE | 2020-10-12 13:51 | P.DS ---
Providers Date of admission: 10/10/20 13:11 Expected date of discharge: 10/10/20 Attending physician: Jerry Lima Consults: 10/08/20 02:10 Consult Physician Routine Consulting Provider: Parisa Duque Consult Reason/Comments: Diarrhea, colitis Do you want consulting provider notified?: Yes Primary care physician: Tabatha Alonso Hospital Course: Final diagnosis -Chronic diarrhea: Probably an exacerbation of microscopic colitis -Status post EGD/colonoscopy showing mild antral gastritis and sigmoid diverticulosis with no colitis or colorectal neoplasia noted -Hypokalemia secondary to diarrhea, improved -Hypertension -Type 2 diabetes mellitus -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 Patient will follow-up with Dr. Alonso in the outpatient setting upon discharge. Patient will continue on Ceftin 500 mg twice daily for the next 5 days. Patient was instructed to follow-up outpatient with GI. Total time taken is greater than 35 minutes. Hospital course 70-year-old female came in with compensative diarrhea patient has chronic diarrhea for about a month. Patient usually has a 3-4 episodes of diarrhea lately for LAD last for 5 days patient was having a bout of 5 nonbloody diarrhea without any mucus. Patient was on steroids in the for microscopic colitis. C. diff was done which was negative. Patient is on antidiarrheal medications. Patient denied any fever chills patient and dysuria. Patient was a valid by gastroenterology patient will undergo colonoscopy tomorrow patient denied any significant abdominal pain apparently she had some abdominal pain is resolved at this time. Patient is hyponatremic secondary to diarrhea potassium will be replaced patient received 40 mg her potassium yesterday was 3.2 we will give her 60 more. Patient is expected to have low potassium as she continued to have diarrhea and she is receiving IV fluids and patient will receive GoLYTELY today for colonoscopy. 10/10/2020 Patient was seen and evaluated in follow-up with no acute overnight issues. She was evaluated and followed closely by GI and underwent EGD/colonoscopy showing mild antral gastritis and scattered sigmoid diverticulosis with no evidence of colitis or colorectal neoplasia noted. Multiple biopsies performed and patient will follow-up outpatient with GI for test results. Patient is continued on Lomotil and reports the intensity and severity has lessened and feels much better. Patient is tolerating diet with no further reports of nausea or vomiting noted. Urine culture did reveal E. coli and patient was continued on IV antibiotics and will continue with oral Ceftin 500 mg twice daily for the next 5 days to complete the course. Currently no reports of chest pain, shortness of breath, or palpitations. Patient is afebrile. No reports of nausea or vomiting and patient is tolerating diet. Patient will be discharged home today. On exam vital signs are stable. Cardio S1, S2 are muffled. Respiratory system shows diminished breath sounds at the bases with no wheezing or rhonchi noted. Abdomen is soft and nontender. Nervous system shows no focal deficits. Please refer to medication reconciliation sheet for a list of medications. Patient Condition at Discharge: Stable Plan - Discharge Summary New Discharge Prescriptions: New Cefuroxime Axetil [Ceftin] 500 mg PO BID 5 Days #10 tab Continue Pravastatin Sodium [Pravachol] 40 mg PO DAILY Escitalopram [Lexapro] 20 mg PO DAILY Omeprazole 20 mg PO DAILY Cholecalciferol [Vitamin D3 (25 Mcg = 1000 Iu)] 25 mcg PO DAILY Dicyclomine [Bentyl] 10 mg PO QID PRN PRN Reason: Gi Upset Fluticasone/Salmeterol [Advair 250-50 Diskus] 1 puff INHALATION RT-BID guaiFENesin [Mucinex] 1,200 mg PO BID PRN PRN Reason: Congestion Allopurinol [Zyloprim] 100 mg PO DAILY Albuterol Sulfate [Ventolin HFA] 2 puff INHALATION RT-QID PRN PRN Reason: Shortness Of Breath Losartan Potassium 50 mg PO DAILY Gabapentin 600 mg PO BID Changed Diphenox-Atrop 2.5-0.025 mg [Lomotil] 1 tab PO QID PRN #12 tab PRN Reason: Diarrhea Discharge Medication List Albuterol Sulfate [Ventolin HFA] 2 puff INHALATION RT-QID PRN 07/25/20 [History] Allopurinol [Zyloprim] 100 mg PO DAILY 07/25/20 [History] Cholecalciferol [Vitamin D3 (25 Mcg = 1000 Iu)] 25 mcg PO DAILY 07/25/20 [History] Escitalopram [Lexapro] 20 mg PO DAILY 07/25/20 [History] Fluticasone/Salmeterol [Advair 250-50 Diskus] 1 puff INHALATION RT-BID 07/25/20 [History] Gabapentin 600 mg PO BID 07/25/20 [History] Losartan Potassium 50 mg PO DAILY 07/25/20 [History] Omeprazole 20 mg PO DAILY 07/25/20 [History] Pravastatin Sodium [Pravachol] 40 mg PO DAILY 07/25/20 [History] guaiFENesin [Mucinex] 1,200 mg PO BID PRN 07/25/20 [History] Dicyclomine [Bentyl] 10 mg PO QID PRN 10/08/20 [History] Cefuroxime Axetil [Ceftin] 500 mg PO BID 5 Days #10 tab 10/10/20 [Rx] Diphenox-Atrop 2.5-0.025 mg [Lomotil] 1 tab PO QID PRN #12 tab 10/10/20 [Rx] Follow up Appointment(s)/Referral(s): Tabatha Alonso MD [Primary Care Provider] - 1-2 days Parisa Duque MD [STAFF PHYSICIAN] - 1 Week Patient Instructions/Handouts: Acute Diarrhea (GEN), Urinary Tract Infection in Older Adults (DC) Activity/Diet/Wound Care/Special Instructions: Activity Limited until follow-up Follow-up with primary care provider upon discharge Continue current diet and advance slowly as tolerated Continue with Lomotil and/or Imodium if having some loose stools Follow-up with GI outpatient for test results Continue with antibiotics for the next 5 days until finished Discharge Disposition: HOME SELF-CARE
== END 2020-10-10 15:54 | disposition home or self-care (01) | DRG 392 ==
LOC: EC 22:28 → 6PED 10-08 01:51 → OBSVTOIN 10-10 13:11
PROVIDERS: ADMIT Internal Medicine; ATTEND Internal Medicine
PROC: 0DBK8ZX Excision of Ascending Colon, Via Natural or Artificial Opening Endoscopic, Diagnostic (ICD-10-PCS; 2020-10-09)
PROC: 0DBM8ZX Excision of Descending Colon, Via Natural or Artificial Opening Endoscopic, Diagnostic (ICD-10-PCS; 2020-10-09)
PROC: 0DB98ZX Excision of Duodenum, Via Natural or Artificial Opening Endoscopic, Diagnostic (ICD-10-PCS; principal; 2020-10-09 07:30)
PROC: 0DB78ZX Excision of Stomach, Pylorus, Via Natural or Artificial Opening Endoscopic, Diagnostic (ICD-10-PCS; 2020-10-09 07:30)
DX: K57.30 Diverticulosis of large intestine without perforation or abscess without bleeding (principal); N39.0 Urinary tract infection, site not specified; E87.1 Hypo-osmolality and hyponatremia; E11.9 Type 2 diabetes mellitus without complications; E78.5 Hyperlipidemia, unspecified; Z87.891 Personal history of nicotine dependence; E87.6 Hypokalemia; I10 Essential (primary) hypertension; F32.9 Major depressive disorder, single episode, unspecified; K29.70 Gastritis, unspecified, without bleeding; Z86.19 Personal history of other infectious and parasitic diseases; Z82.3 Family history of stroke; Z79.899 Other long term (current) drug therapy
CPT/HCPCS: 36415; 43239; 45380; 74177; 80048; 80053; 81001; 82150; 83036; 83690; 85025; 87077; 87086; 87186; 87324; 88305; 88313; 93005; 94640; 96374; 96375; 99285

== ENCOUNTER → 2020-10-12 | Outpatient (CLI) | payer MEDICARE, OTHER ==
[2020-10-12 13:35] LABS: Anisocytosis Slight; HCT 40.4 % (34.0-46.0); MCH 27.1 pg (25.0-35.0); MCHC 32.1 g/dL (31.0-37.0); MCV 84.3 fL (80.0-100.0); Mean Platelet Volume 8.6; Platelet Count 228 k/uL (150-450); RBC 4.79 m/uL (3.80-5.40); RDW 17.1 % (11.5-15.5); WBC 7.9 k/uL (3.8-10.6)
[2020-10-12 13:51] LABS: INR 0.9 (<1.2); Partial Thromboplastin Time 23.2 sec (22.0-30.0); Prothrombin Time 10.2 sec (9.0-12.0)
[2020-10-12 13:55] LABS: Albumin 3.2 g/dL (3.5-5.0); Calcium 8.7 mg/dL (8.4-10.2); Potassium 4.1 mmol/L (3.5-5.1); Total Bilirubin 0.2 mg/dL (0.2-1.3); Total Protein 6.1 g/dL (6.3-8.2)
[2020-10-12 14:53] LABS: Appearance,Urine Clear (Clear); Bilirubin,Urine Negative (Negative); Blood,Urine Negative (Negative); Color,Urine Yellow; Glucose,Urine (UA) Negative (Negative); Ketones,Urine Negative (Negative); Leukocyte Esterase,Urine Moderate (Negative); Mucus,Urine Rare /hpf; Nitrite,Urine Negative (Negative); PH, Urine 5.5 (5.0-8.0); Protein,Urine Trace (Negative); RBC,Urine 2 /hpf (0-5); Specific Gravity,Urine 1.023 (1.001-1.035); Squamous Epithelial Cell,Urine 1 /hpf (0-4); Urobilinogen,Urine <2.0 mg/dL (<2.0); WBC,Urine 20 /hpf (0-5)
== END | disposition home or self-care (01) ==
LOC: LABPAT 12:40
PROVIDERS: ATTEND Orthopaedic Surgery
DX: Z01.812 Encounter for preprocedural laboratory examination (principal); M16.32 Unilateral osteoarthritis resulting from hip dysplasia, left hip
CPT/HCPCS: 36415; 80053; 81001; 85027; 85610; 85730; 86850; 86870; 86880; 86900; 86901; 86902; 87070

== ENCOUNTER 2020-10-17 09:47 | Inpatient (IN) | payer MEDICARE, OTHER ==
[2020-10-13 12:51] VITALS: BMI 32.9
[~2020-10-17 09:47] MED LIST: DEXAMETHASONE SOD PHOSPHATE 4 MG/ML 1 ML VIAL IV ONE; LIDOCAINE 1% (10MG/ML) FOR IV START INTRADERMA PRN; MIDAZOLAM 2 MG/2 ML VIAL IV PRN; ONDANSETRON 4 MG/2 ML VIAL IVP ONE
[2020-10-17] MEDS: LACTATED RINGERS 1,000 ML IV SCH (10:22)
[2020-10-17 10:27] LABS: Glucose,Whole Blood 72 mg/dL (75-99)
[2020-10-17] MEDS ORDERED: fentaNYL (PF) 50 MCG/ML 2 ML AMP ONE (11:10)
[2020-10-17] MEDS ORDERED: NEOSTIGMINE 1 MG/ML 10 ML VIAL ONE (11:10)
[2020-10-17] MEDS ORDERED: ROCURONIUM 10 MG/ML (5 ML VIAL) IV ONE (11:10)
[2020-10-17] MEDS ORDERED: SUCCINYLCHOLINE CHLORIDE 100 MG/5 ML SYR IV ONE (11:10)
[2020-10-17] MEDS ORDERED: PHENYLEPHRINE-0.9% NACL SYG 1,000 MCG/10 ML SYRINGE ONE (11:10)
[2020-10-17] MEDS ORDERED: GLYCOPYRROLATE 0.2 MG/ML 2 ML VIAL ONE (11:10)
[2020-10-17] MEDS ORDERED: MIDAZOLAM 2 MG/2 ML VIAL ONE (11:10)
[2020-10-17] MEDS ORDERED: ePHEDrine SULFATE/0.9% NACL/PF 50 MG/5 ML SYRINGE IV ONE (11:10)
[2020-10-17] MEDS ORDERED: LIDOCAINE 1% INJ 10MG/ML (20 ML MDV) ONE (11:10)
[2020-10-17] MEDS ORDERED: PROPOFOL 10 MG/ML 20 ML VIAL IV ONE (11:10)
[2020-10-17] MEDS ORDERED: ceFAZolin 1,000 MG in SODIUM CHLORIDE 0.9% 1,000 ML IRRIGATION ONE (11:13)
[2020-10-17] MEDS ORDERED: LACTATED RINGERS 1,000 ML IV ONE ×2 (12:43→15:44)
--- NOTE | 2020-10-17 14:42 | FL ---
EXAMINATION TYPE: FL guidance operating room, XR femur LT DATE OF EXAM: 10/17/2020 CLINICAL HISTORY: Prior left femur fracture. TECHNIQUE: Fluoroscopy. Intraoperative 2 views left femur. COMPARISON: Prior left femur x-ray July 25, 2020. FINDINGS: Fluoroscopic guidance was provided during removal of internal fixating hardware procedure performed by Dr. Burnham. A total of 1 minute 34 seconds of fluoroscopic time was utilized during t he procedure and 5 spot images was acquired. Images acquired show no metallic prosthesis extending to distal femur level with 2 transverse distal fixating screws and persistent larger femoral neck fixating screw. IMPRESSION: As Above.
[2020-10-17] MEDS ORDERED: ONDANSETRON 4 MG/2 ML VIAL IVP PRN (14:43)
[2020-10-17] MEDS ORDERED: HYDROmorphone 0.2 MG/1 ML SYRINGE IVP PRN (14:43)
[2020-10-17] MEDS ORDERED: MAGNESIUM HYDROXIDE 2,400 MG/10 ML CUP PO PRN (14:43)
[2020-10-17] MEDS ORDERED: NALOXONE 0.4 MG/ML 1 ML VIAL IV PRN (14:43)
[2020-10-17] MEDS ORDERED: HYDROmorphone 0.5 MG/0.5 ML SYRINGE IVP PRN ×2 (14:43)
[2020-10-17] MEDS ORDERED: HYDROcodone/APAP 7.5-325MG 1 EACH TAB PO PRN ×2 (14:45)
[2020-10-17] MEDS: HYDROmorphone 0.5 MG/0.5 ML SYRINGE IVP PRN ×3 (14:45→21:18)
--- NOTE | 2020-10-17 15:20 | XR ---
EXAMINATION TYPE: XR Femur RT 1 View DATE OF EXAM: 10/17/2020 CLINICAL HISTORY: New fixation surgery left femur. Pain. TECHNIQUE: Single frontal view left femur is obtained. COMPARISON: Prior left femur x-ray July 25, 2020 FINDINGS: There is a longer segment intramedullary sabrina with 2 distal transverse fixating screws and 2 proximal femoral neck fixating screws now identified. Positioning is satisfactory. Adjacent subcutan eous air and soft tissue swelling extending laterally is present. There are left lateral vertical ski n jacqueline from recent surgery noted. No acute fracture. Medial arteriovascular calcification. [place] osseous structures are somewhat demineralized. Partial visualization of surgical change lower lumbar spine and pelvic stimulator device. IMPRESSION: As above.
--- NOTE | 2020-10-17 16:24 | P.OP ---
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 Broken hardware left femur Procedure(s) Performed: 1. Removal of hardware left femur 2. Long intramedullary rodding left hip Implants: [employer] Tri[employer] Intertan nail 125, 11.5 mm x 34 cm. [employer] Intertan integrated-interlocking lag screw, 85 mm lag screw, 80 mm compression screw. [employer] L-P screw, 5.0 mm x 35 mm. x 2 Anesthesia: GETA Surgeon: Jack Burnham Golf Cart Maker #1: Juli Flores Estimated Blood Loss (ml): 450 Pathology: none sent Condition: stable Disposition: PACU Indications for Procedure: This is a 70-year-old female that presented to my office with pain in her left hip. She's had a prior hip fracture with a closed intramedullary rodding, but continues to have pain. A CAT scan demonstrated a nonunion of her proximal femoral fracture, and after discussing the surgical nonsurgical treatment options were discussed with her at length. I recommended removal of hardware and exchange femoral nailing to a long locked femoral nail. Informed consent was obtained. Operative Findings: The operative findings are consistent with a nonunion of the fracture left proximal femur. There is also found that the prior and visually hip screw sabrina was fractured intramedullary. Description of Procedure: The patient was seen in the preoperative area, consent was reviewed, and the operative site was marked with a skin marker. The surgical procedure was discussed at length with both the patient and the family at the bedside. All questions were answered to the best of my ability. The patient was brought to the operating room and placed on the fracture table. Anesthesia was administered by the anesthesia department. 2 g of Ancef were administered intravenously. The patient was placed supine on the fracture table with the fractured extremity in traction boot. The other extremity was placed in a well leg [place] and the bony prominences were well padded. A universal timeout was then performed which confirmed the patient's name, surgical site, ALLERGIES, and consent. The extremity was then prepped with ChloraPrep solution and draped in the usual sterile fashion. Procedure began by removal of the prior femoral nail. Incision was made on the lateral aspect of the left hip through the prior incisions. The lag screw was then identified and multiple attempts were made to remove the lag screw. Finally after much effort, the lag screw was removed with a vice desktop support consultant. It was then noticed that the femoral nail was fractured at the site of the lag screw. The proximal piece of the nail was easily removed. The distal aspect was wedged in the femur and a reverse curet was used to remove the remaining sarbina. Attention was then directed to placing the new medullary sabrina. Utilizing fluoroscopy to identify the tip of the greater trochanter, a 3 cm longitudinal incision was made just proximal to the greater trochanter. Incision was carried through the fascia to the tip of the greater trochanter. Utilizing a curved awl, the entry point was created at the tip of the greater trochanter and centralized in the AP and lateral planes. These locations were confirmed by fluoroscopy. A guidewire was then inserted down the medullary canal. Sequentially reaming of the femur was performed to 13 mm distally and 17 mm proximally with the channel reamer. After reaming, appropriate size nail was inserted over the guidewire. The nail was inserted to the appropriate depth and the guidewire was removed. Placement of the sabrina was confirmed with both AP and lateral fluoroscopic views. The lag screw drill sleeve was placed in the jig and a small skin incision was made on the lateral aspect of the leg and the lag screw drill sleeve was locked into the guide. The 3.2 mm guide pin sleeve was inserted through the lag screw drill sleeve down to bone. A 3.2 mm distally threaded guidewire was inserted through the guide pin sleeve. The guidewire was inserted in the desired position in the femoral head, both anterior and posterior. The lag screw length cage was inserted over the guidepin to the back of the lag screw drill sleeve. Lag screw length was then measured from the cage. Next, the 7.0 mm compression screw starter drill was inserted in the lag screw drill sleeve beneath the guidepin. The compression screw starter drill was advanced under power until it abutted the back and of the lag screw drill sleeve. The 7.0 mm compression screw drill was inserted through the lag screw drill sleeve into the hole created by the compression screw starter drill. This was advanced under fluoroscopy to a depth 5 mm less and the measurement taken for the guidepin. The compression screw drill was removed and the antirotation bar was inserted into the same hole. The 3.2 mm guide pin sleeve was then removed from the drill guide. The lag screw drill was then inserted to a depth that was measured by the lag screw gauge. This was done under fluoroscopy. The lag screw was inserted over the guidewire to the appropriate depth using fluoroscopy. Traction was then released. The antirotation bar was then removed and the compression screw was advanced through the lag screw drill sleeve beneath the lag screw. This was advanced to the appropriate compression was achieved. The proximal drill guide was then removed. 2 distal locking screws were then placed using fluoroscopy in a freehand technique. Final fluoroscopic x-rays were obtained. The wounds were then irrigated copiously with saline solution. Fascia was closed with 0-Vicryl. Subcutaneous tissues were closed with 2-0 Vicryl and the skin was closed with jacqueline. Sterile dressings were applied. The patient was transported to the recovery room in stable condition. The certified ophthalmic assistant ZAINAB Cadena was required due the complexity of surgery the need for skilled surgical garment assembly supervisor for positioning draping retraction and fracture reduction.
[2020-10-17] MEDS ORDERED: MELATONIN 1 MG TAB PO SCH (21:00)
[2020-10-17] MEDS: GABAPENTIN 300 MG CAP PO SCH (22:12)
[2020-10-17] MEDS: SENNOSIDES-DOCUSATE SODIUM 1 EACH TAB PO SCH (22:13)
[2020-10-17] MEDS: SODIUM CHLORIDE 0.9% 1,000 ML IV SCH (22:13)
[2020-10-17] MEDS: NON FORMULARY DRUG (Budesonide [Entocort Ec] 3 MG Capdr...Er) PO SCH (22:59)
[2020-10-18] MEDS ORDERED: SODIUM CHLORIDE 0.9% 500 ML 500 ML IV ONE (02:37)
[2020-10-18 02:53] LABS: Glucose,Whole Blood 167 mg/dL (75-99)
--- NOTE | 2020-10-18 03:07 | P.EN ---
A team note Activated at 2:36 AM. Arrived on the scene shortly after. Reviewed the chart and discussed the case with RN. The patient was admitted for an elective hip replacement which she underwent earlier today with no immediate postoperative complications reported. Patient was noted to be hypotensive by the RN subsequently activated the A team. Upon arrival at the scene, the patient was in Trendelenburg position with vitals BP 86/46, SpO2 91% on 2 L, and pulse 83. The patient reported feeling okay and denied any active complaints. She denied chest pain, shortness of breath, fever, nausea, vomiting, abdominal pain. General: Non-toxic, in no acute distress, appears stated age, obese HEENT: NC/AT, anicteric sclerae, moist conjunctiva, no lid-lag, PERRLA Cardiovascular: S1/S2 wnl, no murmurs, rubs, or gallops Lungs: Clear to auscultation, normal respiratory effort, no accessory muscle use Abdominal: Soft, non-tender, non-distended, no guarding, rebound, or rigidity Skin: Warm, dry Extremities: No edema or contractures Psychiatric: Alert and oriented to person, place and time, appropriate affect Neuro: CN II-XII grossly intact, no gross focal deficits noted Assessment/plan Hypotension, suspected secondary to dehydration -500 mL bolus ordered -Primary team notified -Consider an additional 500 mL bolus if the initial amount is tolerated well -Laboratory evaluation ordered
[2020-10-18 03:25] LABS: Anisocytosis Slight; Basophils % (A) 0 %; Eosinophils % (A) 0 %; HCT 27.6 % (34.0-46.0); Hypochromasia Marked; Lymphocytes # (A) 0.6 k/uL (1.0-4.8); Lymphocytes % (A) 5 %; MCH 27.7 pg (25.0-35.0); MCHC 31.4 g/dL (31.0-37.0); MCV 88.1 fL (80.0-100.0); Mean Platelet Volume 8.4; Monocytes # (A) 0.7 k/uL (0-1.0); Monocytes % (A) 6 %; Neutrophils # (A) 10.5 k/uL (1.3-7.7); Neutrophils % (A) 88 %; Platelet Count 210 k/uL (150-450); RBC 3.13 m/uL (3.80-5.40); RDW 17.7 % (11.5-15.5); WBC 11.9 k/uL (3.8-10.6)
[2020-10-18 03:26] LABS: HGB 8.7 gm/dL (11.4-16.0)
[2020-10-18 03:29] LABS: Partial Thromboplastin Time 22.3 sec (22.0-30.0); Prothrombin Time 10.6 sec (9.0-12.0)
[2020-10-18 03:31] LABS: African American GFR (CKD) 72 (>60 ml/min/1.73 sqM); Anion Gap 8 mmol/L; Blood Urea Nitrogen 22 mg/dL (7-17); Calcium 7.5 mg/dL (8.4-10.2); Carbon Dioxide 24 mmol/L (22-30); Chloride 106 mmol/L (98-107); Glucose 158 mg/dL (74-99); Non-African American GFR(CKD) 62 (>60 ml/min/1.73 sqM); Potassium 4.1 mmol/L (3.5-5.1); Sodium 138 mmol/L (137-145)
[2020-10-18] MEDS: LACTATED RINGERS 1,000 ML IV SCH (07:34)
[2020-10-18] MEDS: SODIUM CHLORIDE 0.9% 1,000 ML IV SCH ×2 (07:34→22:56)
[2020-10-18 07:38] LABS: Glucose,Whole Blood 79 mg/dL (75-99)
--- NOTE | 2020-10-18 08:20 | XR ---
EXAMINATION TYPE: XR chest 1V portable DATE OF EXAM: 10/18/2020 Comparison: 01/31/2020 Clinical History: 70-year-old female assess Lung status post 2L bolus Findings: Patient is slightly rotated and oblique. Similar slight asymmetric elevation right hemidiaphragm. Hea rt were Enlarged. Patchy retrocardiac opacity is noted. Mild interstitial prominence appears unchanged. No ot her consolidation or sizable effusion. Impression: Borderline heart size. Patchy retrocardiac atelectasis or infiltrate. No overt CHF.
[2020-10-18] MEDS: CHOLECALCIFEROL 25 MCG (1000 IU) TABLET PO SCH (08:26)
[2020-10-18] MEDS: ESCITALOPRAM 20 MG TAB PO SCH (08:26)
[2020-10-18] MEDS: PANTOPRAZOLE 40 MG TABLET PO SCH (08:26)
[2020-10-18] MEDS: GABAPENTIN 300 MG CAP PO SCH ×2 (08:27→22:56)
[2020-10-18] MEDS: RIVAROXABAN 10 MG TAB PO SCH (08:27)
[2020-10-18] MEDS: PRAVASTATIN SODIUM 40 MG TAB PO SCH (08:27)
[2020-10-18] MEDS: allopurinoL 100 MG TAB PO SCH (08:27)
[2020-10-18] MEDS ORDERED: BISMUTH SUBSALICYLATE 4,192 MG/240 ML BOTTLE PO PRN (10:15)
--- NOTE | 2020-10-18 10:49 | P.PN ---
Subjective Progress Note Date: 10/18/20 Principal diagnosis: Status post removal of hardware and insertion of long intramedullary femoral nail left hip. Hypotension. Acute blood loss anemia. This is a 70-year-old female who is status post removal of hardware with insertion of long intramedullary nail of the left hip for nonunion and hardware failure. the patient has an episode of hypotension last evening and the A team was called. She was given a bolus of normal saline. The patient has stabilized this morning. Her hemoglobin this morning is 8.7. She is currently receiving 1 unit of packed RBCs. She has no new complaints or concerns. Objective - Vital Signs Vital signs: Vital Signs Temp 98.3 F 10/18/20 10:25 Pulse 80 10/18/20 10:25 Resp 16 10/18/20 10:25 BP 93/44 10/18/20 10:25 Pulse Ox 98 10/18/20 08:00 Intake & Output 10/17/20 10/18/20 10/18/20 18:59 06:59 18:59 Intake Total 1951 0 Output Total 450 100 Balance 1501 -100 0 Weight 75 kg Intake: IV 1950 Blood Product 0 Rc As-1 Unit 0 [id number] Output: Urine 100 Estimated Blood Loss 450 Other: Voiding Method Bedside Commode # Voids 0 - Exam This is a pleasant 70-year-old female in no acute distress. She appears to be a little pale. She is alert and oriented. Exam of the left lower extremity reveals that her dressing is clean, dry and intact. The postsurgical dressing has been changed. Small amount of drainage on the dressing to the distal incision. She has full foot and ankle motion without difficulty or pain. Neurovascular status to the lower extremity is intact. - Labs CBC & Chem 7: 10/18/20 02:49 10/18/20 02:49 Labs: Abnormal Lab Results - Last 24 Hours (Table) 10/18/20 10/18/20 10/18/20 Range/Units 02:34 02:49 02:49 WBC 11.9 H (3.8-10.6) k/uL RBC 3.13 L (3.80-5.40) m/uL Hgb 8.7 L D (11.4-16.0) gm/dL Hct 27.6 L (34.0-46.0) % RDW 17.7 H (11.5-15.5) % Neutrophils # 10.5 H (1.3-7.7) k/uL Lymphocytes # 0.6 L (1.0-4.8) k/uL BUN 22 H (7-17) mg/dL Glucose 158 H (74-99) mg/dL POC Glucose (mg/dL) 167 H (75-99) mg/dL Calcium 7.5 L (8.4-10.2) mg/dL Crossmatch 10/18/20 Range/Units 02:59 WBC (3.8-10.6) k/uL RBC (3.80-5.40) m/uL Hgb (11.4-16.0) gm/dL Hct (34.0-46.0) % RDW (11.5-15.5) % Neutrophils # (1.3-7.7) k/uL Lymphocytes # (1.0-4.8) k/uL BUN (7-17) mg/dL Glucose (74-99) mg/dL POC Glucose (mg/dL) (75-99) mg/dL Calcium (8.4-10.2) mg/dL Crossmatch See Detail Assessment and Plan (1) Status post hardware removal Current Visit: Yes Status: Acute Code(s): Z98.890 - OTHER SPECIFIED POSTPROCEDURAL STATES SNOMED Code(s): 748215720 (2) Aftercare for removal of fracture plate or internal fixation device Current Visit: Yes Status: Acute Code(s): Z47.2 - ENCOUNTER FOR REMOVAL OF INTERNAL FIXATION DEVICE SNOMED Code(s): 588827760 (3) Failed fixation of fracture Current Visit: Yes Status: Acute Code(s): JRQ7245 - SNOMED Code(s): 341879577 (4) Status post open reduction and internal fixation (ORIF) of fracture Current Visit: Yes Status: Acute Code(s): Z98.890 - OTHER SPECIFIED POSTPROCEDURAL STATES; Z87.81 - PERSONAL HISTORY OF (HEALED) TRAUMATIC FRACTURE SNOMED Code(s): 713444128 Plan: The clinical findings are discussed with the patient and nursing staff. She is currently getting 1 unit of blood. We will repeat hemoglobin this afternoon. May possibly get a second unit if hemoglobin is not improved. Appreciate input from internal medicine. Continue orthopedic care.
[2020-10-18 11:42] LABS: Glucose,Whole Blood 45 mg/dL (75-99)
[2020-10-18 11:59] LABS: Glucose,Whole Blood 38 mg/dL (75-99)
--- NOTE | 2020-10-18 12:04 | P.CONS ---
History of Present Illness - Reason for Consult Perioperative hypotension, leukocytosis - History of Present Illness Patient is a pleasant 70-year-old female with history of hypertension is admitted for removal of hardware with insertion of long intramedullary nail of the left hip for non-union and hardware failure. Patient was quite a bit hypotensive. Patient did take her lisinopril yesterday morning before surgery. Patient is bit lethargic today patient doesn't have any fever chills doesn't have any cough does have some leukocytosis chest x-ray showed some atelectasis denied any dysuria patient presently doesn't have Gil catheter. REVIEW OF SYSTEMS: CONSTITUTIONAL: No fever, no malaise, no fatigue. HEENT: No recent visual problems or hearing problems. Denied any sore throat. CARDIOVASCULAR: No chest pain, orthopnea, PND, no palpitations, no syncope. PULMONARY: No shortness of breath, no cough, no hemoptysis. GASTROINTESTINAL: No diarrhea, no nausea, no vomiting, no abdominal pain. NEUROLOGICAL: No headaches, no weakness, no numbness. HEMATOLOGICAL: Denies any bleeding or petechiae. GENITOURINARY: Denies any burning micturition, frequency, or urgency. MUSCULOSKELETAL/RHEUMATOLOGICAL: Denies any joint pain, swelling, or any muscle pain. ENDOCRINE: Denies any polyuria or polydipsia. The rest of the 14-point review of systems is negative. PHYSICAL EXAMINATION: GENERAL: The patient is alert and oriented x3, not in any acute distress. Well developed, well nourished. HEENT: Pupils are round and equally reacting to light. EOMI. No scleral icterus. No conjunctival pallor. Normocephalic, atraumatic. No pharyngeal erythema. No thyromegaly. CARDIOVASCULAR: S1 and S2 present. No murmurs, rubs, or gallops. PULMONARY: Chest is clear to auscultation, no wheezing or crackles. ABDOMEN: Soft, nontender, nondistended, normoactive bowel sounds. No palpable organomegaly. MUSCULOSKELETAL: Deferred to orthopedic surgery EXTREMITIES: No cyanosis, clubbing, or pedal edema. NEUROLOGICAL: Gross neurological examination did not reveal any focal deficits. SKIN: No rashes. Assessment and plan -Hypotension patient had perioperative hypotension which expected. Patient is on IV fluids blood pressure is better now patient is receiving PRBC transfusion at this time as per orthopedic surgery -Hypertension history: Hold off antidepressive medications because of the h ypotension this time -Leukocytosis reactive secondary to surgery -Atelectasis: Ordered incentive spirometer -Atrial fibrillation: Patient is on anti-correlation which will be continued -COPD without any acute exacerbation -Intramedullary nailing: Pain management as per primary service and DVT prophy laxis patient is already on anticoagulation -Hyperlipidemia -Hypertension -Depression Past Medical History Past Medical History: Atrial Fibrillation, Asthma, COPD, Diabetes Mellitus, GERD/Reflux, Hyperlipidemia, Hypertension, Renal Disease Additional Past Medical History / Comment(s): stage 3 kidney disease, diet controlled diabetes, gout, rash from sun on arms, hx of uterine cancer, Hospitalized for diarrhea and current tx for UTI, back stimulator . History of Any Multi-Drug Resistant Organisms: None Reported Past Surgical History: Back Surgery, Orthopedic Surgery Additional Past Surgical History / Comment(s): FX FEMUR WITH JAH, HYSTERECTOMY, STIMULATOR IN BACK ([employer]). egd and colonoscopy 10/09/20. Past Anesthesia/Blood Transfusion Reactions: Previous Problems w/ Anesthesia Additional Past Anesthesia/Blood Transfusion Reaction / Comm: STATES SHE WAS GIVEN TOO MUCH- CONFUSED. 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 Past Drug Use History: None Reported - Past Family History Father Additional Family Medical History / Comment(s): Stroke Mother Family Medical History: No Reported History Medications and Allergies Home Medications Medication Instructions Recorded Confirmed Type Albuterol Sulfate [Ventolin HFA] 2 puff INHALATION RT-QID PRN 07/25/20 10/17/20 History Allopurinol [Zyloprim] 100 mg PO DAILY 07/25/20 10/17/20 History Cholecalciferol [Vitamin D3 (25 50 mcg PO DAILY 07/25/20 10/17/20 History Mcg = 1000 Iu)] Escitalopram [Lexapro] 20 mg PO DAILY 07/25/20 10/17/20 History Gabapentin 600 mg PO BID 07/25/20 10/17/20 History Losartan Potassium 50 mg PO DAILY 07/25/20 10/17/20 History Omeprazole 20 mg PO DAILY 07/25/20 10/17/20 History Pravastatin Sodium [Pravachol] 40 mg PO DAILY 07/25/20 10/17/20 History Cefuroxime Axetil [Ceftin] 500 mg PO BID 5 Days #10 tab 10/10/20 10/17/20 Rx Diphenox-Atrop 2.5-0.025 mg 1 tab PO QID PRN #12 tab 10/10/20 10/17/20 Rx [Lomotil] Acetaminophen [Tylenol Extra 500 mg PO DIRECTED PRN 10/13/20 10/17/20 History Strength] Bismuth Subsalicylate 1 dose PO DIRECTED 10/13/20 10/17/20 History [Pepto-Bismol] Budesonide [Entocort EC] 3 mg PO TID 10/13/20 10/17/20 History Gas-X (Unknown Dose) 1 dose PO DIRECTED PRN 10/13/20 10/17/20 History Melatonin 4 mg PO HS 10/13/20 10/17/20 History HYDROcodone/APAP 7.5-325MG [Brutus 1 - 2 tab PO Q6H PRN #32 tab 10/17/20 Rx 7.5-325] Ondansetron Odt [Zofran Odt] 1 tab PO Q8HR PRN #10 tab 10/17/20 Rx Rivaroxaban [Xarelto] 10 mg PO DAILY #35 tab 10/17/20 Rx Sennosides [Senokot] 2 tab PO DAILY PRN #60 tablet 10/17/20 Rx Allergies Allergy/AdvReac Type Severity Reaction Status Date / Time clarithromycin [From Biaxin] Allergy Unknown Rash/Hives Verified 10/17/20 10:13 loratadine Allergy Unknown Rash/Hives Verified 10/17/20 10:13 bee venom protein (honey bee) Allergy Anaphylaxis Verified 10/17/20 10:13 bupropion AdvReac Rash/Hives Verified 10/17/20 10:13 [From Wellbutrin SR] codeine AdvReac Vomiting Verified 10/17/20 10:13 furosemide [From Lasix] AdvReac Rash/Hives Verified 10/17/20 10:13 ibuprofen [From Motrin] AdvReac Nausea & Verified 10/17/20 10:13 Vomiting loracarbef [From Lorabid] AdvReac Rash/Hives Verified 10/17/20 10:13 morphine AdvReac Nausea & Verified 10/17/20 10:13 Vomiting Penicillins AdvReac Vomiting Verified 10/17/20 10:13 propoxyphene AdvReac Vomiting Verified 10/17/20 10:13 [From Darvocet-N] biqxin AdvReac Unknown Rash/Hives Uncoded 10/17/20 10:13 toziaz AdvReac Unknown Uncoded 10/17/20 10:13 Physical Exam Vitals: Vital Signs Temp Pulse Pulse Resp BP BP Pulse Ox 10/18/20 10:55 98.3 F 88 14 97/51 98 10/18/20 10:25 98.3 F 80 16 93/44 10/18/20 10:15 98.3 F 87 14 85/47 10/18/20 08:00 98.1 F 90 18 98/48 98 10/18/20 02:00 97.3 F L 92 13 73/40 96 10/17/20 20:00 74 16 10/17/20 19:45 97.5 F L 74 16 91/48 96 10/17/20 18:30 73 81/44 96 10/17/20 18:15 65 92/48 98 10/17/20 18:00 64 106/52 93 L 10/17/20 17:45 86 91/52 92 L 10/17/20 17:30 67 90/43 97 10/17/20 17:15 67 90/45 97 10/17/20 17:00 55 L 87/44 98 10/17/20 16:45 61 90/52 96 10/17/20 16:30 95.6 F L 76 15 83/46 99 10/17/20 16:03 68 16 91/49 100 10/17/20 15:48 66 16 99/47 100 10/17/20 15:41 99/49 10/17/20 15:33 72 16 90/47 100 10/17/20 15:25 92/45 10/17/20 15:18 63 16 78/47 100 10/17/20 15:00 62 16 86/46 100 10/17/20 14:48 72 16 95/45 100 10/17/20 14:36 96.8 F L 72 16 121/71 96 Intake and Output 10/17/20 10/18/20 10/18/20 22:59 06:59 14:59 Intake Total 300 0 Output Total 100 Balance 300 -100 0 Intake: IV 300 Blood Product 0 Rc As-1 Unit 0 [id number] Output: Urine 100 Other: Voiding Method Bedside Commode # Voids 0 Weight 75 kg Results CBC & Chem 7: 10/18/20 02:49 10/18/20 02:49 Labs: Abnormal Lab Results - Last 24 Hours (Table) 10/18/20 10/18/20 10/18/20 Range/Units 02:34 02:49 02:49 WBC 11.9 H (3.8-10.6) k/uL RBC 3.13 L (3.80-5.40) m/uL Hgb 8.7 L D (11.4-16.0) gm/dL Hct 27.6 L (34.0-46.0) % RDW 17.7 H (11.5-15.5) % Neutrophils # 10.5 H (1.3-7.7) k/uL Lymphocytes # 0.6 L (1.0-4.8) k/uL BUN 22 H (7-17) mg/dL Glucose 158 H (74-99) mg/dL POC Glucose (mg/dL) 167 H (75-99) mg/dL Calcium 7.5 L (8.4-10.2) mg/dL Crossmatch 10/18/20 10/18/20 10/18/20 Range/Units 02:59 11:38 11:58 WBC (3.8-10.6) k/uL RBC (3.80-5.40) m/uL Hgb (11.4-16.0) gm/dL Hct (34.0-46.0) % RDW (11.5-15.5) % Neutrophils # (1.3-7.7) k/uL Lymphocytes # (1.0-4.8) k/uL BUN (7-17) mg/dL Glucose (74-99) mg/dL POC Glucose (mg/dL) 45 L 38 L (75-99) mg/dL Calcium (8.4-10.2) mg/dL Crossmatch See Detail
[2020-10-18] MEDS ORDERED: DEXTROSE 50% SYRINGE 50 ML IVP ONE (12:17)
[2020-10-18 12:18] LABS: Glucose,Whole Blood 36 mg/dL (75-99)
[2020-10-18] MEDS: ACETAMINOPHEN TAB 500 MG TAB PO PRN (12:42)
[2020-10-18 12:46] LABS: Glucose,Whole Blood 126 mg/dL (75-99)
[2020-10-18] MEDS: KETOROLAC 15 MG/ML 1 ML VIAL IVP PRN ×2 (15:43→22:56)
[2020-10-18 16:53] LABS: Anisocytosis Slight; Basophils # (A) 0.1 k/uL (0-0.2); Basophils % (A) 1 %; Eosinophils % (A) 0 %; HGB 8.3 gm/dL (11.4-16.0); Hypochromasia Slight; Lymphocytes % (A) 11 %; MCH 29.2 pg (25.0-35.0); MCHC 33.3 g/dL (31.0-37.0); MCV 87.7 fL (80.0-100.0); Monocytes # (A) 0.5 k/uL (0-1.0); Monocytes % (A) 6 %; Neutrophils # (A) 7.5 k/uL (1.3-7.7); Neutrophils % (A) 81 %; Platelet Count 158 k/uL (150-450); RBC 2.85 m/uL (3.80-5.40); RDW 17.7 % (11.5-15.5); WBC 9.3 k/uL (3.8-10.6)
[2020-10-18 17:06] LABS: Glucose,Whole Blood 113 mg/dL (75-99)
[2020-10-18 21:12] LABS: Glucose,Whole Blood 103 mg/dL (75-99)
[2020-10-18] MEDS: SENNOSIDES-DOCUSATE SODIUM 1 EACH TAB PO SCH (22:56)
[2020-10-18] MEDS: MELATONIN 5 MG TABLET PO SCH (22:56)
[2020-10-19] MEDS: ACETAMINOPHEN TAB 500 MG TAB PO PRN (02:11)
[2020-10-19] MEDS: NON FORMULARY DRUG (Budesonide [Entocort Ec] 3 MG Capdr...Er) PO SCH ×5 (04:30→23:16)
[2020-10-19] MEDS: LACTATED RINGERS 1,000 ML IV SCH (07:05)
[2020-10-19 07:07] LABS: Glucose,Whole Blood 86 mg/dL (75-99)
[2020-10-19] MEDS: PANTOPRAZOLE 40 MG TABLET PO SCH (07:36)
[2020-10-19] MEDS: ALBUTEROL HFA INHALER INHALATION PRN ×3 (07:50→15:50)
[2020-10-19] MEDS: SODIUM CHLORIDE 0.9% 1,000 ML IV SCH (08:40)
[2020-10-19] MEDS: RIVAROXABAN 10 MG TAB PO SCH (10:01)
[2020-10-19] MEDS: allopurinoL 100 MG TAB PO SCH (10:01)
[2020-10-19] MEDS: ESCITALOPRAM 20 MG TAB PO SCH (10:02)
[2020-10-19] MEDS: PRAVASTATIN SODIUM 40 MG TAB PO SCH (10:02)
[2020-10-19] MEDS: CHOLECALCIFEROL 25 MCG (1000 IU) TABLET PO SCH (10:03)
[2020-10-19] MEDS: GABAPENTIN 300 MG CAP PO SCH ×2 (10:04→21:28)
--- NOTE | 2020-10-19 10:12 | P.PN ---
Subjective Progress Note Date: 10/19/20 This is a 70-year-old female who is status post removal of hardware left femur and long intramedullary rodding left hip. This is postoperative day #2 and patient is seen and evaluated at bedside today. Patient states that she has not felt dizzy today and was able to take some steps with physical therapy this morning. Patient received one unit of blood yesterday. Vital signs are stable this morning. Objective - Vital Signs Vital signs: Vital Signs Temp 98.5 F 10/19/20 08:00 Pulse 81 10/19/20 08:00 Resp 18 10/19/20 08:00 BP 94/58 10/19/20 08:00 Pulse Ox 95 10/19/20 08:00 Intake & Output 10/18/20 10/19/20 10/19/20 18:59 06:59 18:59 Intake Total 2670 Output Total 700 Balance 2670 -700 Intake: Intake, IV Titration 1560 Amount Sodium Chloride 0.9% 1, 560 000 ml @ 70 mls/hr IV . [id number] [facility] Rx#:[id number] Sodium Chloride 0.9% 500 1000 ml 500 ml @ 999 mls/hr IV .Q31M ONE Rx#:[id number] Oral 800 Blood Product 310 Rc As-1 Unit 310 [id number] Output: Urine 700 Other: Voiding Method Indwelling Catheter - Exam Vital signs are stable. Patient is in no acute distress and is alert and oriented 3. Calf is soft and nontender to palpation. Dressing with moderate bloody drainage present. Vanda intact. Patient has full foot and ankle motion without pain or difficulty. Sensation intact. Neurovascular status and circulatory status are intact. - Labs CBC & Chem 7: 10/18/20 16:42 10/18/20 02:49 Labs: Abnormal Lab Results - Last 24 Hours (Table) 10/18/20 10/18/20 10/18/20 Range/Units 02:59 11:38 11:58 RBC (3.80-5.40) m/uL Hgb (11.4-16.0) gm/dL Hct (34.0-46.0) % RDW (11.5-15.5) % POC Glucose (mg/dL) 45 L 38 L (75-99) mg/dL Crossmatch See Detail 08/07/0510/18/20 10/18/20 Range/Units 12:15 12:45 16:42 RBC 2.85 L (3.80-5.40) m/uL Hgb 8.3 L (11.4-16.0) gm/dL Hct 25.0 L (34.0-46.0) % RDW 17.7 H (11.5-15.5) % POC Glucose (mg/dL) 36 L 126 H (75-99) mg/dL Crossmatch 10/18/20 10/18/20 Range/Units 17:04 21:09 RBC (3.80-5.40) m/uL Hgb (11.4-16.0) gm/dL Hct (34.0-46.0) % RDW (11.5-15.5) % POC Glucose (mg/dL) 113 H 103 H (75-99) mg/dL Crossmatch Assessment and Plan Assessment: 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 (1) Aftercare for removal of fracture plate or internal fixation device Current Visit: Yes Status: Acute Code(s): Z47.2 - ENCOUNTER FOR REMOVAL OF INTERNAL FIXATION DEVICE SNOMED Code(s): 739945362 (2) Status post hardware removal Current Visit: Yes Status: Acute Code(s): Z98.890 - OTHER SPECIFIED POSTPROCEDURAL STATES SNOMED Code(s): 870361175 Plan: 1. Weightbearing as tolerated. 2. Xarelto for DVT prophylaxis. 3. Blood pressure is stable this morning. Patient is asymptomatic and was able to get up with physical therapy today. 4. Appreciate input from medicine. 5. Planning for discharge to [facility] in the next 24-48 hours.
[2020-10-19 10:33] LABS: Anisocytosis Slight; Basophils % (A) 1 %; Eosinophils # (A) 0.1 k/uL (0-0.7); Eosinophils % (A) 1 %; HCT 28.2 % (34.0-46.0); HGB 8.9 gm/dL (11.4-16.0); Hypochromasia Marked; Lymphocytes # (A) 0.5 k/uL (1.0-4.8); Lymphocytes % (A) 5 %; MCH 28.3 pg (25.0-35.0); MCHC 31.5 g/dL (31.0-37.0); MCV 89.7 fL (80.0-100.0); Mean Platelet Volume 8.8; Monocytes # (A) 0.7 k/uL (0-1.0); Monocytes % (A) 7 %; Neutrophils # (A) 7.7 k/uL (1.3-7.7); Neutrophils % (A) 84 %; Platelet Count 158 k/uL (150-450); RBC 3.15 m/uL (3.80-5.40); RDW 17.4 % (11.5-15.5); WBC 9.1 k/uL (3.8-10.6)
[2020-10-19 11:44] LABS: Glucose,Whole Blood 99 mg/dL (75-99)
[2020-10-19] MEDS: KETOROLAC 15 MG/ML 1 ML VIAL IVP PRN ×2 (12:48→21:28)
--- NOTE | 2020-10-19 15:58 | P.PN ---
Subjective Progress Note Date: 10/19/20 - Reason for Consult Perioperative hypotension, leukocytosis - History of Present Illness Patient is a pleasant 70-year-old female with history of hypertension is admitted for removal of hardware with insertion of long intramedullary nail of the left hip for non-union and hardware failure. Patient was quite a bit hypotensive. Patient did take her lisinopril yesterday morning before surgery. Patient is bit lethargic today patient doesn't have any fever chills doesn't have any cough does have some leukocytosis chest x-ray showed some atelectasis denied any dysuria patient presently doesn't have Gil catheter. 10/19/2020 Patient is seen in follow-up this morning states she is having left hip pain continues to be somewhat hypotensive. Patient does have gentle IV hydration and will continue. Repeat hemoglobin today status post transfusion is 8.9. Patient continues to have diarrhea as well which is chronic for colitis and is tolerating diet although receiving foods she cannot have with each meal and has not been eating very much. Patient continues on 2 L via nasal cannula and oxygen saturation is 96%. White blood count is 9.1. Encouraged continued incentive spirometer use and increasing activity as tolerated. Patient does have Toradol as well and will add IV Tylenol. Patient is planning on going to [facility] for continued PT/OT therapy prior to returning home. Patient having low- grade temps and will monitor closely and repeat a.m. labs. Review of systems: Constitutional: reports fatigue, low-grade fever, or chills Cardiovascular: No reports of chest pain or palpitations Respiratory: No reports of shortness of breath or cough GI: No reports of nausea, vomiting, reports chronic diarrhea : No reports of dysuria or retention Neurovascular: Reports generalized weakness and left hip pain All medications have been reviewed PHYSICAL EXAMINATION: GENERAL: The patient is alert and oriented x3, not in any acute distress. Well developed, well nourished. HEENT: Pupils are round and equally reacting to light. EOMI. No scleral icterus. No conjunctival pallor. Normocephalic, atraumatic. No pharyngeal erythema. No thyromegaly. CARDIOVASCULAR: S1 and S2 present. No murmurs, rubs, or gallops. PULMONARY: Chest is clear to auscultation, no wheezing or crackles. ABDOMEN: Soft, nontender, nondistended, normoactive bowel sounds. No palpable organomegaly. MUSCULOSKELETAL: Deferred to orthopedic surgery EXTREMITIES: No cyanosis, clubbing, or pedal edema. NEUROLOGICAL: Gross neurological examination did not reveal any focal deficits. SKIN: No rashes. Assessment and plan: -Hypotension patient had perioperative hypotension which expected. Patient continues on gentle IV fluids blood pressure is borderline will continue to hold home medications. Patient is status post 1 unit of PRBC, hemoglobin is 8.9 -Hypertension history: Hold off antihypertensive medications because of the hypotension this time -Leukocytosis reactive secondary to surgery, improving -Atelectasis: Encouraged to continue incentive spirometer at least 10 times every hour while awake -Atrial fibrillation: Patient is xarelto -COPD without any acute exacerbation -Intramedullary nailing left hip: Pain management as per primary service -Hyperlipidemia -Hypertension -Depression -DVT prophylaxis: Patient on Xarelto Plan: Continue current medication regimen. Patient to continue with IV fluids as she continues to be mildly hypotensive and will continue to hold blood pressure medications and repeat labs in the morning and monitor closely. Patient did have a low-grade fever and will add IV Tylenol. Patient continues to work with physical therapy and will be going to [facility] for PT/OT therapy once stabilized and discharged. Encouraged the patient to continue with incentive spirometer at least 10 times every hour while awake along with increasing activity as tolerated and getting out of bed more often. Thank you for this consultation. Will continue to follow along closely with orthopedics. Objective - Vital Signs Vital signs: Vital Signs Temp 99.8 F H 10/19/20 14:00 Pulse 83 10/19/20 14:00 Resp 16 10/19/20 14:00 BP 97/55 10/19/20 14:00 Pulse Ox 96 10/19/20 14:00 Intake & Output 10/18/20 10/19/20 10/19/20 18:59 06:59 18:59 Intake Total 2670 1820 Output Total 700 1600 Balance 2670 -700 220 Intake: Intake, IV Titration 1560 560 Amount Sodium Chloride 0.9% 1, 560 560 000 ml @ 70 mls/hr IV . [id number] [facility] Rx#:[id number] Sodium Chloride 0.9% 500 1000 ml 500 ml @ 999 mls/hr IV .Q31M ONE Rx#:[id number] Oral 800 1260 Blood Product 310 Rc As-1 Unit 310 [id number] Output: Urine 700 1600 Uretheral (Gil) 800 Other: Voiding Method Indwelling Catheter # Bowel Movements 6 - Labs CBC & Chem 7: 10/19/20 10:02 10/18/20 02:49 Labs: Abnormal Lab Results - Last 24 Hours (Table) 10/18/20 10/18/20 10/18/20 Range/Units 16:42 17:04 21:09 RBC 2.85 L (3.80-5.40) m/uL Hgb 8.3 L (11.4-16.0) gm/dL Hct 25.0 L (34.0-46.0) % RDW 17.7 H (11.5-15.5) % Lymphocytes # (1.0-4.8) k/uL POC Glucose (mg/dL) 113 H 103 H (75-99) mg/dL 10/19/20 Range/Units 10:02 RBC 3.15 L (3.80-5.40) m/uL Hgb 8.9 L (11.4-16.0) gm/dL Hct 28.2 L (34.0-46.0) % RDW 17.4 H (11.5-15.5) % Lymphocytes # 0.5 L (1.0-4.8) k/uL POC Glucose (mg/dL) (75-99) mg/dL
[2020-10-19 16:15] LABS: Glucose,Whole Blood 107 mg/dL (75-99)
[2020-10-19] MEDS: ACETAMINOPHEN IV (For NPO) 1,000 MG in EMPTY BAG 1 BAG IVPB SCH (17:37)
[2020-10-19 20:19] LABS: Glucose,Whole Blood 196 mg/dL (75-99)
[2020-10-19] MEDS: SENNOSIDES-DOCUSATE SODIUM 1 EACH TAB PO SCH (21:23)
[2020-10-19] MEDS: MELATONIN 5 MG TABLET PO SCH (21:28)
[2020-10-20] MEDS: ACETAMINOPHEN IV (For NPO) 1,000 MG in EMPTY BAG 1 BAG IVPB SCH ×3 (00:41→12:22)
[2020-10-20] MEDS: SODIUM CHLORIDE 0.9% 1,000 ML IV SCH ×2 (01:00→16:14)
[2020-10-20 03:41] VITALS: RESP 16
[2020-10-20 06:54] LABS: African American GFR (CKD) 73 (>60 ml/min/1.73 sqM); Anion Gap 2 mmol/L; Blood Urea Nitrogen 19 mg/dL (7-17); Calcium 7.2 mg/dL (8.4-10.2); Carbon Dioxide 24 mmol/L (22-30); Chloride 113 mmol/L (98-107); Glucose 100 mg/dL (74-99); Non-African American GFR(CKD) 63 (>60 ml/min/1.73 sqM); Potassium 3.2 mmol/L (3.5-5.1); Sodium 139 mmol/L (137-145)
[2020-10-20 07:08] LABS: Glucose,Whole Blood 105 mg/dL (75-99)
[2020-10-20] MEDS: PANTOPRAZOLE 40 MG TABLET PO SCH (07:41)
[2020-10-20] MEDS ORDERED: POTASSIUM CHLORIDE ER 20 MEQ TAB.ER PO STA (07:53)
[2020-10-20] MEDS: KETOROLAC 15 MG/ML 1 ML VIAL IVP PRN ×2 (08:53→19:45)
[2020-10-20] MEDS: allopurinoL 100 MG TAB PO SCH (09:10)
[2020-10-20] MEDS: PRAVASTATIN SODIUM 40 MG TAB PO SCH (09:10)
[2020-10-20] MEDS: ESCITALOPRAM 20 MG TAB PO SCH (09:11)
[2020-10-20] MEDS: GABAPENTIN 300 MG CAP PO SCH ×2 (09:11→19:45)
[2020-10-20] MEDS: RIVAROXABAN 10 MG TAB PO SCH (09:12)
[2020-10-20] MEDS: CHOLECALCIFEROL 25 MCG (1000 IU) TABLET PO SCH (09:14)
[2020-10-20] MEDS: NON FORMULARY DRUG (Budesonide [Entocort Ec] 3 MG Capdr...Er) PO SCH ×2 (09:18→12:10)
[2020-10-20] MEDS: DIPHENOX-ATROP 2.5-0.025 MG 1 EACH TAB PO SCH ×4 (10:34→21:46)
[2020-10-20 11:06] LABS: Basophils # (A) 0.03 X 10*3/uL (0.00-0.10); Basophils % (A) 0.5 %; Eosinophils # (A) 0.17 X 10*3/uL (0.04-0.35); Lymphocytes # (A) 0.77 X 10*3/uL (0.90-5.00); Lymphocytes % (A) 13.8 %; Monocytes # (A) 0.67 X 10*3/uL (0.20-1.00); Neutrophils # (A) 3.92 X 10*3/uL (1.80-7.70); Neutrophils % (A) 70.3 %
[2020-10-20 11:07] LABS: HCT 22.1 % (37.2-46.3); HGB 6.8 g/dL (12.0-15.0); MCH 27.2 pg (27.0-32.0); MCHC 30.8 g/dL (32.0-37.0); MCV 88.4 fL (80.0-97.0); Mean Platelet Volume 12.4 fL (9.5-12.2); Platelet Count 131 X 10*3/uL (140-440); RDW 18.5 % (11.5-14.5); WBC 5.58 X 10*3/uL (4.50-10.00)
[2020-10-20 11:38] LABS: Glucose,Whole Blood 103 mg/dL (75-99)
--- NOTE | 2020-10-20 14:12 | P.PN ---
Subjective Progress Note Date: 10/20/20 - Reason for Consult Perioperative hypotension, leukocytosis - History of Present Illness Patient is a pleasant 70-year-old female with history of hypertension is admitted for removal of hardware with insertion of long intramedullary nail of the left hip for non-union and hardware failure. Patient was quite a bit hypotensive. Patient did take her lisinopril yesterday morning before surgery. Patient is bit lethargic today patient doesn't have any fever chills doesn't have any cough does have some leukocytosis chest x-ray showed some atelectasis denied any dysuria patient presently doesn't have Gil catheter. 10/19/2020 Patient is seen in follow-up this morning states she is having left hip pain continues to be somewhat hypotensive. Patient does have gentle IV hydration and will continue. Repeat hemoglobin today status post transfusion is 8.9. Patient continues to have diarrhea as well which is chronic for colitis and is tolerating diet although receiving foods she cannot have with each meal and has not been eating very much. Patient continues on 2 L via nasal cannula and oxygen saturation is 96%. White blood count is 9.1. Encouraged continued incentive spirometer use and increasing activity as tolerated. Patient does have Toradol as well and will add IV Tylenol. Patient is planning on going to [facility] for continued PT/OT therapy prior to returning home. Patient having low- grade temps and will monitor closely and repeat a.m. labs. 10/20/2020 Patient is seen in follow-up this morning feeling much better and was able to get up and work with physical therapy more with no acute overnight issues noted. Repeat CBC was done and hemoglobin was found to be 6.8 and ordered 1 unit of PRBC for transfusion. Potassium is 3.2 and replaced and recommend repeat follow-up of labs closely outpatient. Patient is scheduled to go to ECF for continued PT/OT therapy and medically stable for discharge with close outpatient follow-up of repeat labs. Review of systems: Constitutional: No reports of fatigue, fever, or chills Cardiovascular: No reports of chest pain or palpitations Respiratory: No reports of shortness of breath or cough GI: No reports of nausea, vomiting, reports chronic diarrhea : No reports of dysuria or retention Neurovascular: Reports generalized weakness and left hip pain All medications have been reviewed PHYSICAL EXAMINATION: GENERAL: The patient is alert and oriented x3, not in any acute distress. Well developed, well nourished. HEENT: Pupils are round and equally reacting to light. EOMI. No scleral icterus. No conjunctival pallor. Normocephalic, atraumatic. No pharyngeal erythema. No thyromegaly. CARDIOVASCULAR: S1 and S2 present. No murmurs, rubs, or gallops. PULMONARY: Chest is clear to auscultation, no wheezing or crackles. ABDOMEN: Soft, nontender, nondistended, normoactive bowel sounds. No palpable organomegaly. MUSCULOSKELETAL: Deferred to orthopedic surgery EXTREMITIES: No cyanosis, clubbing, or pedal edema. NEUROLOGICAL: Gross neurological examination did not reveal any focal deficits. SKIN: No rashes. Assessment and plan: -Hypotension patient had perioperative hypotension which expected. Will continue to hold losartan on discharge, improving -Hypertension history: Hold off antihypertensive medications for now his blood pressure is well controlled in the 120s and recommend close outpatient monitoring possibly resuming losartan in the future -Acute blood loss anemia possibly secondary to an unexpected event from surgical intervention with no active bleeding noted, received a unit of blood postop for hemoglobin of 8 and hemoglobin found to be 6.8 today and receiving another unit of PRBCs prior to discharge -Leukocytosis reactive secondary to surgery, improved -Atelectasis: Encouraged to continue incentive spirometer at least 10 times every hour while awake -Atrial fibrillation: Patient is xarelto -Chronic kidney disease stage III -COPD without any acute exacerbation -Intramedullary nailing left hip: Pain management as per primary service -Hyperlipidemia -Hypertension -Depression -DVT prophylaxis: Patient on Xarelto Plan: Continue current medication regimen. Patient is afebrile. Blood pressure improving although will continue to hold losartan with possible resuming in the outpatient setting. Patient hemoglobin found to be 6.8 today and will receive 1 unit of PRBCs prior to discharge and recommend close outpatient monitoring with CBC and BMP to monitor potassium as that was 3.2 in the outpatient setting in 2- 3 days. Encouraged the patient to continue with incentive spirometer at least 10 times every hour while awake along with increasing activity as tolerated. Thank you for this consultation. Will continue to follow along closely with orthopedics. Anticipate discharge to [facility] today. Objective - Vital Signs Vital signs: Vital Signs Temp 98.6 F 10/20/20 02:45 Pulse 70 10/20/20 02:45 Resp 16 10/20/20 02:45 BP 100/60 10/20/20 02:45 Pulse Ox 98 10/20/20 02:45 Intake & Output 10/19/20 10/20/20 10/20/20 18:59 06:59 18:59 Intake Total 1820 Output Total 1600 1100 Balance 220 -1100 Intake: Intake, IV Titration 560 Amount Sodium Chloride 0.9% 1, 560 000 ml @ 70 mls/hr IV . [id number] [facility] Rx#:[id number] Oral 1260 Output: Urine 1600 1100 Uretheral (Gil) 800 850 Other: Voiding Method Indwelling Catheter # Bowel Movements 6 2 - Labs CBC & Chem 7: 10/20/20 05:27 10/20/20 05:27 Labs: Abnormal Lab Results - Last 24 Hours (Table) 10/19/20 10/19/20 10/19/20 Range/Units 10:02 16:14 20:18 RBC 3.15 L (3.80-5.40) m/uL Hgb 8.9 L (11.4-16.0) gm/dL Hct 28.2 L (34.0-46.0) % RDW 17.4 H (11.5-15.5) % Lymphocytes # 0.5 L (1.0-4.8) k/uL Potassium (3.5-5.1) mmol/L Chloride (98-107) mmol/L BUN (7-17) mg/dL Glucose (74-99) mg/dL POC Glucose (mg/dL) 107 H 196 H (75-99) mg/dL Calcium (8.4-10.2) mg/dL 10/20/20 10/20/20 Range/Units 05:27 07:02 RBC (3.80-5.40) m/uL Hgb (11.4-16.0) gm/dL Hct (34.0-46.0) % RDW (11.5-15.5) % Lymphocytes # (1.0-4.8) k/uL Potassium 3.2 L (3.5-5.1) mmol/L Chloride 113 H (98-107) mmol/L BUN 19 H (7-17) mg/dL Glucose 100 H (74-99) mg/dL POC Glucose (mg/dL) 105 H (75-99) mg/dL Calcium 7.2 L (8.4-10.2) mg/dL
[2020-10-20] MEDS: BUDESONIDE 3 MG PO SCH ×2 (15:00→19:43)
[2020-10-20 16:28] LABS: Glucose,Whole Blood 110 mg/dL (75-99)
[2020-10-20] MEDS: SENNOSIDES-DOCUSATE SODIUM 1 EACH TAB PO SCH (19:45)
[2020-10-20] MEDS: MELATONIN 5 MG TABLET PO SCH (19:45)
[2020-10-20 19:50] LABS: Glucose,Whole Blood 167 mg/dL (75-99)
[2020-10-20 21:16] LABS: Anisocytosis Slight; HCT 27.7 % (34.0-46.0); Hypochromasia Slight; MCHC 32.6 g/dL (31.0-37.0); Mean Platelet Volume 8.8; Platelet Count 131 k/uL (150-450); RBC 3.12 m/uL (3.80-5.40); RDW 17.3 % (11.5-15.5); WBC 4.8 k/uL (3.8-10.6)
[2020-10-20 21:35] LABS: Band Neutrophils % 1 %; Eosinophils # (M) 0.05 k/uL (0-0.7); Lymphocytes # (M) 0.48 k/uL (1.0-4.8); Monocytes # (M) 0.24 k/uL (0-1.0); Neutrophils % (M) 83 %; Nucleated Red Blood Cells 0 /100 WBC (0-0); Total Cells Counted 100
[2020-10-20 21:36] LABS: Polychromasia Present
[2020-10-20 21:37] LABS: Spherocytes Present
[2020-10-21 04:39] VITALS: BP 162/72; PULSE 71; TEMP 98.6
[2020-10-21] MEDS: SODIUM CHLORIDE 0.9% 1,000 ML IV SCH (06:46)
[2020-10-21 07:04] LABS: Glucose,Whole Blood 116 mg/dL (75-99)
[2020-10-21] MEDS: DIPHENOX-ATROP 2.5-0.025 MG 1 EACH TAB PO SCH (08:30)
[2020-10-21] MEDS: CHOLECALCIFEROL 25 MCG (1000 IU) TABLET PO SCH (08:30)
[2020-10-21] MEDS: BUDESONIDE 3 MG PO SCH (08:30)
[2020-10-21] MEDS: GABAPENTIN 300 MG CAP PO SCH (08:31)
[2020-10-21] MEDS: allopurinoL 100 MG TAB PO SCH (08:31)
[2020-10-21] MEDS: RIVAROXABAN 10 MG TAB PO SCH (08:31)
[2020-10-21] MEDS: PANTOPRAZOLE 40 MG TABLET PO SCH (08:31)
[2020-10-21] MEDS: PRAVASTATIN SODIUM 40 MG TAB PO SCH (08:31)
[2020-10-21] MEDS: ESCITALOPRAM 20 MG TAB PO SCH (08:31)
[2020-10-21] MEDS: KETOROLAC 15 MG/ML 1 ML VIAL IVP PRN (08:31)
--- NOTE | 2020-10-21 09:43 | P.PN ---
Subjective Progress Note Date: 10/20/20 This is a 70-year-old female who is status post removal of hardware left femur and long intramedullary rodding left hip. This is postoperative day #3 and patient is seen and evaluated at bedside today. Patient has been up and walking with physical therapy. Hemoglobin is 6.8 today. Patient denies any dizziness or any new complaints. Per nursing, the patient has been having diarrhea which is normal for her due to history of colitis. Objective - Vital Signs Vital signs: Vital Signs Temp 98.6 F 10/20/20 07:59 Pulse 73 10/20/20 07:59 Resp 16 10/20/20 07:59 BP 114/57 10/20/20 07:59 Pulse Ox 98 10/20/20 07:59 Intake & Output 10/19/20 10/20/20 10/20/20 18:59 06:59 18:59 Intake Total 1820 180 Output Total 1600 1100 600 Balance 220 -1100 -420 Intake: Intake, IV Titration 560 Amount Sodium Chloride 0.9% 1, 560 000 ml @ 70 mls/hr IV . [id number] [facility] Rx#:[id number] Oral 1260 180 Output: Urine 1600 1100 600 Uretheral (Gil) 800 850 600 Other: Voiding Method Indwelling Catheter Indwelling Catheter # Bowel Movements 6 2 - Exam Vital signs are stable. Patient is in no acute distress and is alert and oriented 3. Patient is up and walking with her walker and physical therapy this morning. Calf is soft and nontender to palpation. Dressing with moderate bloody drainage present. Patient has full foot and ankle motion without pain or difficulty. Sensation intact. Neurovascular status and circulatory status are intact. - Labs CBC & Chem 7: 10/20/20 05:27 10/20/20 05:27 Labs: Abnormal Lab Results - Last 24 Hours (Table) 10/18/20 10/19/20 10/19/20 Range/Units 02:59 16:14 20:18 RBC (4.10-5.20) X 10*6/uL Hgb (12.0-15.0) g/dL Hct (37.2-46.3) % MCHC (32.0-37.0) g/dL RDW (11.5-14.5) % Plt Count (140-440) X 10*3/uL MPV (9.5-12.2) fL Lymphocytes # (0.90-5.00) X 10*3/uL Potassium (3.5-5.1) mmol/L Chloride (98-107) mmol/L BUN (7-17) mg/dL Glucose (74-99) mg/dL POC Glucose (mg/dL) 107 H 196 H (75-99) mg/dL Calcium (8.4-10.2) mg/dL Crossmatch See Detail 10/20/20 10/20/20 10/20/20 Range/Units 05:27 05:27 07:02 RBC 2.50 L (4.10-5.20) X 10*6/uL Hgb 6.8 L* (12.0-15.0) g/dL Hct 22.1 L (37.2-46.3) % MCHC 30.8 L (32.0-37.0) g/dL RDW 18.5 H (11.5-14.5) % Plt Count 131 L (140-440) X 10*3/uL MPV 12.4 H (9.5-12.2) fL Lymphocytes # 0.77 L (0.90-5.00) X 10*3/uL Potassium 3.2 L (3.5-5.1) mmol/L Chloride 113 H (98-107) mmol/L BUN 19 H (7-17) mg/dL Glucose 100 H (74-99) mg/dL POC Glucose (mg/dL) 105 H (75-99) mg/dL Calcium 7.2 L (8.4-10.2) mg/dL Crossmatch 10/20/20 Range/Units 11:27 RBC (4.10-5.20) X 10*6/uL Hgb (12.0-15.0) g/dL Hct (37.2-46.3) % MCHC (32.0-37.0) g/dL RDW (11.5-14.5) % Plt Count (140-440) X 10*3/uL MPV (9.5-12.2) fL Lymphocytes # (0.90-5.00) X 10*3/uL Potassium (3.5-5.1) mmol/L Chloride (98-107) mmol/L BUN (7-17) mg/dL Glucose (74-99) mg/dL POC Glucose (mg/dL) 103 H (75-99) mg/dL Calcium (8.4-10.2) mg/dL Crossmatch Assessment and Plan Assessment: 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 (1) Aftercare for removal of fracture plate or internal fixation device Current Visit: Yes Status: Acute Code(s): Z47.2 - ENCOUNTER FOR REMOVAL OF INTERNAL FIXATION DEVICE SNOMED Code(s): 885954455 (2) Status post hardware removal Current Visit: Yes Status: Acute Code(s): Z98.890 - OTHER SPECIFIED POSTPROCEDURAL STATES SNOMED Code(s): 898920593 Plan: 1. Weightbearing as tolerated. 2. Xarelto for DVT prophylaxis. 3. Hemoglobin 6.8 today. Blood pressure is stable this morning. Patient is asymptomatic and was walking with physical therapy today. 4. Appreciate input from medicine. 5. Planning for discharge to [facility]CF when medically stable.
--- NOTE | 2020-10-21 09:48 | P.DS ---
Providers Date of admission: 10/18/20 10:13 Expected date of discharge: 10/21/20 Attending physician: Jack Burnham Consults: 10/17/20 17:14 Consult Physician Routine Consulting Provider: Kalyn Griggs Consult Reason/Comments: medical management Do you want consulting provider notified?: Already Contacted Primary care physician: Tabatha Alonso - Discharge Diagnosis(es) (1) Aftercare for removal of fracture plate or internal fixation device Current Visit: Yes Status: Acute (2) Status post hardware removal Current Visit: Yes Status: Acute Hospital Course: This is a 70-year-old female with a nonunion left proximal femur fracture status post intramedullary hip screw. The patient presented for evaluation as an outpatient. After discussion and consideration patient elects to proceed with removal of hardware and long intramedullary rodding of the left hip. The patient is seen preoperatively by Dr. Burnham and medically cleared for surgery by their primary care physician. Patient is admitted to [facility] on 10/17/2020 for removal of hardware and long intramedullary rodding of the left hip. The procedure is performed without complication or sequelae. The patient is doing well postoperatively. Patient did have to receive multiple blood transfusions due to postoperative hypotension and acute blood loss anemia . Labs and vital signs are stable on da y of discharge. Patient has been up and walking with physical therapy and states that she is feeling well. On day of discharge patient's hip incision is healing well. There is minimal erythema. There is mild drainage noted at this time. There is minimal soft tissue swelling to the hip and thigh. Patient has full foot and ankle motion without difficulty or pain. Calf is soft and nontender to palpation. Neurovascular status to the left lower extremity is intact. Patient is discharged to rehab in good condition. Please see med rec for accurate list of home medications. Plan - Discharge Summary Discharge Rx Participant: Yes New Discharge Prescriptions: New Potassium Chloride ER [K-Dur 20] 20 meq PO DAILY #30 tab HYDROcodone/APAP 7.5-325MG [[place] 7.5-325] 1 - 2 tab PO Q6H PRN #32 tab PRN Reason: Pain Sennosides [Senokot] 2 tab PO DAILY PRN #60 tablet PRN Reason: Constipation Rivaroxaban [Xarelto] 10 mg PO DAILY #35 tab Ondansetron Odt [Zofran Odt] 1 tab PO Q8HR PRN #10 tab PRN Reason: Nausea Magnesium Hydroxide [Milk of Magnesia Concentrate] 2,400 mg PO DAILY PRN ml PRN Reason: Constipation Sennosides-Docusate Sodium [Senokot-S] 2 each PO HS tab Continue Pravastatin Sodium [Pravachol] 40 mg PO DAILY Escitalopram [Lexapro] 20 mg PO DAILY Omeprazole 20 mg PO DAILY Cholecalciferol [Vitamin D3 (25 Mcg = 1000 Iu)] 50 mcg PO DAILY Bismuth Subsalicylate [Pepto-Bismol] 1 dose PO DIRECTED Acetaminophen [Tylenol Extra Strength] 500 mg PO DIRECTED PRN PRN Reason: Pain Budesonide [Entocort EC] 3 mg PO TID Gabapentin 600 mg PO BID #10 tab Allopurinol [Zyloprim] 100 mg PO DAILY Albuterol Sulfate [Ventolin HFA] 2 puff INHALATION RT-QID PRN PRN Reason: Shortness Of Breath Melatonin 4 mg PO HS Gas-X (Unknown Dose) 1 dose PO DIRECTED PRN PRN Reason: gas Diphenox-Atrop 2.5-0.025 mg [Lomotil] 1 tab PO QID PRN #12 tab PRN Reason: Diarrhea Discontinued Losartan Potassium 50 mg PO DAILY Cefuroxime Axetil [Ceftin] 500 mg PO BID 5 Days #10 tab Discharge Medication List Albuterol Sulfate [Ventolin HFA] 2 puff INHALATION RT-QID PRN 07/25/20 [History] Allopurinol [Zyloprim] 100 mg PO DAILY 07/25/20 [History] Cholecalciferol [Vitamin D3 (25 Mcg = 1000 Iu)] 50 mcg PO DAILY 07/25/20 [History] Escitalopram [Lexapro] 20 mg PO DAILY 07/25/20 [History] Omeprazole 20 mg PO DAILY 07/25/20 [History] Pravastatin Sodium [Pravachol] 40 mg PO DAILY 07/25/20 [History] Acetaminophen [Tylenol Extra Strength] 500 mg PO DIRECTED PRN 10/13/20 [History] Bismuth Subsalicylate [Pepto-Bismol] 1 dose PO DIRECTED 10/13/20 [History] Budesonide [Entocort EC] 3 mg PO TID 10/13/20 [History] Gas-X (Unknown Dose) 1 dose PO DIRECTED PRN 10/13/20 [History] Melatonin 4 mg PO HS 10/13/20 [History] HYDROcodone/APAP 7.5-325MG [[place] 7.5-325] 1 - 2 tab PO Q6H PRN #32 tab 10/17/20 [Rx] Ondansetron Odt [Zofran Odt] 1 tab PO Q8HR PRN #10 tab 10/17/20 [Rx] Rivaroxaban [Xarelto] 10 mg PO DAILY #35 tab 10/17/20 [Rx] Sennosides [Senokot] 2 tab PO DAILY PRN #60 tablet 10/17/20 [Rx] Diphenox-Atrop 2.5-0.025 mg [Lomotil] 1 tab PO QID PRN #12 tab 10/20/20 [Rx] Gabapentin 600 mg PO BID #10 tab 10/20/20 [Rx] Magnesium Hydroxide [Milk of Magnesia Concentrate] 2,400 mg PO DAILY PRN ml 10/20/20 [Rx] Potassium Chloride ER [K-Dur 20] 20 meq PO DAILY #30 tab 10/20/20 [Rx] Sennosides-Docusate Sodium [Senokot-S] 2 each PO HS tab 10/20/20 [Rx] Follow up Appointment(s)/Referral(s): Jack Burnham DO [Doctor of Osteopathic Medicine] - 10 Days Ambulatory/Diagnostic Orders: Basic Metabolic Panel [LAB.AMB] Time Frame: 2 Days, Location: None Selected Complete Blood Count w/diff [LAB.AMB] Time Frame: 2 Days, Location: None Selected Activity/Diet/Wound Care/Special Instructions: Weightbearing as tolerated with walker. Daily dressing changes. May shower with incision covered. Vanda to be removed in 10-14 days. Please take Xarelto as prescribed to help prevent blood clots. Recommend use of compression stockings daily until follow up to help prevent swelling and blood clots. May remove at night before sleeping. Please follow-up with [facility] in 2 weeks and call with any questions or concerns, . Continue to hold losartan Recommend repeat labs in 2-3 days to monitor potassium as potassium was 3.2 along with hemoglobin Continue with consistent carb heart healthy diet Follow up with primary care provider upon discharge Discharge Disposition: TRANSFER TO SNF/ECF
[2020-10-21 11:19] LABS: Glucose,Whole Blood 120 mg/dL (75-99)
[2020-10-21 11:22] LABS: African American GFR (CKD) >90 (>60 ml/min/1.73 sqM); Anion Gap 2 mmol/L; Blood Urea Nitrogen 17 mg/dL (7-17); Calcium 7.6 mg/dL (8.4-10.2); Carbon Dioxide 24 mmol/L (22-30); Chloride 114 mmol/L (98-107); Glucose 125 mg/dL (74-99); Non-African American GFR(CKD) 85 (>60 ml/min/1.73 sqM); Sodium 140 mmol/L (137-145)
--- NOTE | 2020-10-21 12:44 | P.PN ---
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 Patient was quite a bit hypotensive. Patient did take her lisinopril yesterday morning before surgery. Patient is bit lethargic today patient doesn't have any fever chills doesn't have any cough does have some leukocytosis chest x-ray showed some atelectasis denied any dysuria patient presently doesn't have Gil catheter. 10/19/2020 Patient is seen in follow-up this morning states she is having left hip pain continues to be somewhat hypotensive. Patient does have gentle IV hydration and will continue. Repeat hemoglobin today status post transfusion is 8.9. Patient continues to have diarrhea as well which is chronic for colitis and is tolerating diet although receiving foods she cannot have with each meal and has not been eating very much. Patient continues on 2 L via nasal cannula and o xygen saturation is 96%. White blood count is 9.1. Encouraged continued incentive spirometer use and increasing activity as tolerated. Patient does have Toradol as well and will add IV Tylenol. Patient is planning on going to [facility] for continued PT/OT therapy prior to returning home. Patient having low- grade temps and will monitor closely and repeat a.m. labs. 10/20/2020 Patient is seen in follow-up this morning feeling much better and was able to get up and work with physical therapy more with no acute overnight issues noted. Repeat CBC was done and hemoglobin was found to be 6.8 and ordered 1 unit of PRBC for transfusion. Potassium is 3.2 and replaced and recommend repeat follow-up of labs closely outpatient. Patient is scheduled to go to [facility] for continued PT/OT therapy and medically stable for discharge with close outpatient follow-up of repeat labs. 10/21/2020 Patient is evaluated bedside states she states the chair, and states that she is doing much better. Patient has worked with physical therapy and had no acute issues overnight. Repeat CBC revealed a potassium level 4.0, and patient states that she is ready for discharge today. Hemoglobin today is stable at 9 status post transfusion of 1 unit of PRBC. Patient's vital signs are stable today, patient is afebrile. Patient denies any chest pain, cough, shortness of breath. Patient has been cleared from medical services for discharge to [facility] for rehab. Patient will continue eliquis for for history of A. 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 Patient to follow-up with surgical services, primary care services. Review of systems: Constitutional: No reports of fatigue, fever, or chills Cardiovascular: No reports of chest pain or palpitations Respiratory: No reports of shortness of breath or cough GI: No reports of nausea, vomiting, reports chronic diarrhea : No reports of dysuria or retention Neurovascular: Reports generalized weakness and left hip pain All medications have been reviewed PHYSICAL EXAMINATION: GENERAL: The patient is alert and oriented x3, not in any acute distress. Well developed, well nourished. HEENT: Pupils are round and equally reacting to light. EOMI. No scleral icterus. No conjunctival pallor. Normocephalic, atraumatic. No pharyngeal erythema. No thyromegaly. CARDIOVASCULAR: S1 and S2 present. No murmurs, rubs, or gallops. PULMONARY: Chest is clear to auscultation, no wheezing or crackles. ABDOMEN: Soft, nontender, nondistended, normoactive bowel sounds. No palpable organomegaly. MUSCULOSKELETAL: Deferred to orthopedic surgery EXTREMITIES: No cyanosis, clubbing, or pedal edema. NEUROLOGICAL: Gross neurological examination did not reveal any focal deficits. SKIN: No rashes. Assessment and plan: -Hypotension patient had perioperative hypotension which expected. Losartan is on hold until follow up with primary care services after discharge. -Hypertension history: Hold off antihypertensive medications for now his blood pressure is well controlled in the 120s and recommend close outpatient monitoring possibly resuming losartan in the future -Acute blood loss anemia possibly secondary to an unexpected event from surgical intervention with no active bleeding noted, hemoglobin stable at 9 status post 2 unit PRBC this admission. -Leukocytosis reactive secondary to surgery, improved -Atelectasis: Encouraged to continue incentive spirometer at least 10 times every hour while awake -Atrial fibrillation: Patient is xarelto -Chronic kidney disease stage III, creatinine within normal limits today on October 21. -COPD without any acute exacerbation -Intramedullary nailing left hip: Pain management as per primary service -Hyperlipidemia -Hypertension -Depression -DVT prophylaxis: Patient on Xarelto Plan: Continue current medication regimen. Patient is afebrile. Blood pressure improving although will continue to hold losartan with possible resuming in the outpatient setting. Hemoglobin stable today at 9, potassium repleted level 4.0. Patient is cleared from medical services for discharge to rehab, repeat CBC BMP in 2-3 days. Encouraged the patient to continue with incentive spirometer at least 10 times every hour while awake along with increasing activity as tolerated. Thank you for this consultation. Anticipate DC to rehabilitation facility today. Objective - Vital Signs Vital signs: Vital Signs Temp 98.6 F 10/21/20 02:35 Pulse 71 10/21/20 02:35 Resp 16 10/21/20 02:35 BP 162/72 10/21/20 02:35 Pulse Ox 98 10/21/20 02:35 Intake & Output 10/20/20 10/21/20 10/21/20 18:59 06:59 18:59 Intake Total 490 Output Total 600 Balance -110 Intake: Oral 180 Blood Product 310 Rc As-1 Unit 310 [id number] Output: Urine 600 Uretheral (Gil) 600 Other: Voiding Method Indwelling Catheter Toilet # Voids 1 2 # Bowel Movements 1 1 - Labs CBC & Chem 7: 10/20/20 20:50 10/21/20 10:39 Labs: Abnormal Lab Results - Last 24 Hours (Table) 10/20/20 10/20/20 10/20/20 Range/Units 12:35 16:21 19:49 RBC (3.80-5.40) m/uL Hgb (11.4-16.0) gm/dL Hct (34.0-46.0) % RDW (11.5-15.5) % Plt Count (150-450) k/uL Lymphocytes # (Manual) (1.0-4.8) k/uL Chloride (98-107) mmol/L Glucose (74-99) mg/dL POC Glucose (mg/dL) 110 H 167 H (75-99) mg/dL Calcium (8.4-10.2) mg/dL Crossmatch See Detail 10/20/20 10/21/20 10/21/20 Range/Units 20:50 07:02 10:39 RBC 3.12 L (3.80-5.40) m/uL Hgb 9.0 L (11.4-16.0) gm/dL Hct 27.7 L (34.0-46.0) % RDW 17.3 H (11.5-15.5) % Plt Count 131 L (150-450) k/uL Lymphocytes # (Manual) 0.48 L (1.0-4.8) k/uL Chloride 114 H (98-107) mmol/L Glucose 125 H (74-99) mg/dL POC Glucose (mg/dL) 116 H (75-99) mg/dL Calcium 7.6 L (8.4-10.2) mg/dL Crossmatch 10/21/20 Range/Units 11:16 RBC (3.80-5.40) m/uL Hgb (11.4-16.0) gm/dL Hct (34.0-46.0) % RDW (11.5-15.5) % Plt Count (150-450) k/uL Lymphocytes # (Manual) (1.0-4.8) k/uL Chloride (98-107) mmol/L Glucose (74-99) mg/dL POC Glucose (mg/dL) 120 H (75-99) mg/dL Calcium (8.4-10.2) mg/dL Crossmatch Assessment and Plan Time with Patient: Less than 30
== END 2020-10-21 12:35 | DRG 987 ==
LOC: OR 09:47 → 4SSUR 15:16 → OR 10-18 10:13
PROVIDERS: ADMIT Orthopaedic Surgery; ATTEND Orthopaedic Surgery
PROC: 0QP704Z Removal of Internal Fixation Device from Left Upper Femur, Open Approach (ICD-10-PCS; principal; 2020-10-17 12:10)
PROC: 30233N1 Transfusion of Nonautologous Red Blood Cells into Peripheral Vein, Percutaneous Approach (ICD-10-PCS; 2020-10-18)
DX: D62 Acute posthemorrhagic anemia (principal); S72.002A Fracture of unspecified part of neck of left femur, initial encounter for closed fracture; T84.195A Other mechanical complication of internal fixation device of left femur, initial encounter; J98.11 Atelectasis; S72.002K Fracture of unspecified part of neck of left femur, subsequent encounter for closed fracture with nonunion; E11.22 Type 2 diabetes mellitus with diabetic chronic kidney disease; E78.5 Hyperlipidemia, unspecified; F32.9 Major depressive disorder, single episode, unspecified; I12.9 Hypertensive chronic kidney disease with stage 1 through stage 4 chronic kidney disease, or unspecified chronic kidney disease; I48.91 Unspecified atrial fibrillation; I95.9 Hypotension, unspecified; J44.9 Chronic obstructive pulmonary disease, unspecified; K52.9 Noninfective gastroenteritis and colitis, unspecified; N18.30 Chronic kidney disease, stage 3 unspecified; Z79.01 Long term (current) use of anticoagulants; Z79.899 Other long term (current) drug therapy; Z82.3 Family history of stroke; Z85.42 Personal history of malignant neoplasm of other parts of uterus; Z87.891 Personal history of nicotine dependence; Z90.710 Acquired absence of both cervix and uterus; Z98.890 Other specified postprocedural states; Z20.822 Contact with and (suspected) exposure to COVID-19; Z88.8 Allergy status to other drugs, medicaments and biological substances; Z88.1 Allergy status to other antibiotic agents; Z91.030 Bee allergy status
CPT/HCPCS: 71045; 80048; 83880; 85025; 85610; 85730; 86850; 86870; 86880; 86900; 86901; 86902; 86920; 87635; 94640; 94760

== ENCOUNTER → 2021-02-16 | Outpatient (CLI) | payer MEDICARE, OTHER ==
--- NOTE | 2021-02-17 12:59 | CT ---
EXAMINATION TYPE: CT abdomen pelvis wo/w con DATE OF EXAM: 02/16/2021 COMPARISON: 10/08/2010 HISTORY: abnormal weight loss CT DLP: 2018.3 mGycm CONTRAST: CT scan of the abdomen and pelvis is performed with Oral Contrast and with IV Contrast, patient injec angelica with 80 mL of Isovue 300. FINDINGS: LUNG BASES-: No visible nodule. No infiltrate. LIVER/GB: Cholecystectomy clips are in place. Balloon No space occupying hepatic lesion. Biliary t ree is of normal caliber. PANCREAS: No inflammation. No distinct mass. SPLEEN: No splenic enlargement. No lesion multilevel fifth ventricle. Seen. ADRENALS: No nodule. No thickening. KIDNEYS/BLADDER: No hydronephrosis. No nephrolithiasis. No distinct renal mass. Urinary bladder wa ll thickening noted diffusely. Correlate for underlying cystitis. BOWEL: Normal appendix. Normal bowel caliber. No inflammation. GENITAL ORGANS: No gross abnormality. LYMPH NODES: No greater than 1cm abdominal or pelvic lymph nodes are appreciated. AORTA: No significant abnormality. OSSEOUS STRUCTURES: No significant abnormality is seen. OTHER: No significant additional abnormality is seen. IMPRESSION: 1. Findings again noted to reflect urinary bladder cystitis. Otherwise stable examination.
== END | disposition home or self-care (01) ==
LOC: RADCTMAIN 16:29
PROVIDERS: ATTEND Internal Medicine Gastroenterology
DX: K52.9 Noninfective gastroenteritis and colitis, unspecified (principal); R63.4 Abnormal weight loss
CPT/HCPCS: 82565; 84520; 74178; 36415; Q9967